=== PATIENT | female | born 1940 | race Caucasian/White ===

== ENCOUNTER 2022-01-28 19:14 | Inpatient (IN) | payer MEDICARE ==
[2022-01-28] MEDS ORDERED: Albuterol Sulfate 2.5 mg/3 ml Neb NEB PRN (20:28)
[2022-01-28 20:53] VITALS: BMI 32.4
[2022-01-28] MEDS: Bupropion 150 MG XL TAB PO SCH (21:56)
[2022-01-28] MEDS: metFORMIN 500 MG TAB PO SCH (21:56)
[2022-01-28] MEDS: Flecainide 50 MG TAB PO SCH (21:57)
[2022-01-28] MEDS: Apixaban 5 MG TAB PO SCH (21:57)
[2022-01-28] MEDS: Montelukast Sodium 10 mg Tablet PO SCH (21:57)
[2022-01-28] MEDS: Mometasone/Formoterol 200/5 60 PUFF INH SCH (21:59)
[2022-01-28] MEDS: ALPRAZolam 0.5 MG TAB PO PRN (23:53)
[2022-01-29] MEDS ORDERED: LUTEIN 6 MG PO SCH (09:00)
[2022-01-29] MEDS ORDERED: MAGNESIUM 250 MG PO SCH (09:00)
[2022-01-29] MEDS: Flecainide 50 MG TAB PO SCH ×2 (09:15→20:20)
[2022-01-29] MEDS: Ezetimibe 10 MG TAB PO SCH (09:16)
[2022-01-29] MEDS: Bupropion 150 MG XL TAB PO SCH ×2 (09:16→20:20)
[2022-01-29] MEDS: metFORMIN 500 MG TAB PO SCH ×2 (09:16→20:20)
[2022-01-29] MEDS: Apixaban 5 MG TAB PO SCH ×2 (09:16→20:20)
[2022-01-29] MEDS: Acetaminophen 325 MG TAB PO PRN ×2 (09:16→22:47)
[2022-01-29] MEDS: Cholecalciferol (Vitamin D3) 5,000 UNITS CAPSULE PO SCH (09:16)
[2022-01-29] MEDS: Mometasone/Formoterol 200/5 60 PUFF INH SCH ×2 (09:18→20:17)
[2022-01-29] MEDS ORDERED: Colchicine 0.6 MG TAB PO SCH (19:00)
[2022-01-29] MEDS: Montelukast Sodium 10 mg Tablet PO SCH (20:20)
[2022-01-29] MEDS: ALPRAZolam 0.5 MG TAB PO PRN (20:21)
[2022-01-30] MEDS: Bupropion 150 MG XL TAB PO SCH ×2 (09:20→20:40)
[2022-01-30] MEDS: metFORMIN 500 MG TAB PO SCH ×2 (09:20→20:40)
[2022-01-30] MEDS: Magnesium Oxide 400 MG TAB PO SCH (09:20)
[2022-01-30] MEDS: Colchicine 0.6 MG TAB PO SCH ×2 (09:21→20:40)
[2022-01-30] MEDS: Flecainide 50 MG TAB PO SCH ×2 (09:21→20:39)
[2022-01-30] MEDS: Cholecalciferol (Vitamin D3) 5,000 UNITS CAPSULE PO SCH (09:22)
[2022-01-30] MEDS: Ezetimibe 10 MG TAB PO SCH (09:22)
[2022-01-30] MEDS: Apixaban 5 MG TAB PO SCH ×2 (09:22→20:40)
[2022-01-30] MEDS: Mometasone/Formoterol 200/5 60 PUFF INH SCH ×2 (09:24→19:30)
[2022-01-30] MEDS: Acetaminophen 325 MG TAB PO PRN (10:48)
[2022-01-30] MEDS: ALPRAZolam 0.5 MG TAB PO PRN (14:00)
[2022-01-30] MEDS: Montelukast Sodium 10 mg Tablet PO SCH (20:40)
[2022-01-31] MEDS: Flecainide 50 MG TAB PO SCH ×2 (08:15→21:19)
[2022-01-31] MEDS: Cholecalciferol (Vitamin D3) 5,000 UNITS CAPSULE PO SCH (08:16)
[2022-01-31] MEDS: metFORMIN 500 MG TAB PO SCH ×2 (08:17→21:19)
[2022-01-31] MEDS: Magnesium Oxide 400 MG TAB PO SCH (08:17)
[2022-01-31] MEDS: Apixaban 5 MG TAB PO SCH ×2 (08:17→21:19)
[2022-01-31] MEDS: Bupropion 150 MG XL TAB PO SCH ×2 (08:18→21:19)
[2022-01-31] MEDS: Ezetimibe 10 MG TAB PO SCH (08:18)
[2022-01-31] MEDS: Mometasone/Formoterol 200/5 60 PUFF INH SCH (08:22)
[2022-01-31] MEDS: Acetaminophen 325 MG TAB PO PRN ×2 (10:30→21:22)
[2022-01-31] MEDS: ALPRAZolam 0.5 MG TAB PO PRN (18:58)
[2022-01-31] MEDS: Montelukast Sodium 10 mg Tablet PO SCH (21:20)
[2022-01-31] MEDS: SYMBICORT INH SCH (21:23)
[2022-02-01] MEDS: ALPRAZolam 0.5 MG TAB PO PRN ×2 (02:31→18:24)
[2022-02-01] MEDS: Acetaminophen 325 MG TAB PO PRN ×4 (05:32→22:04)
[2022-02-01] MEDS: metFORMIN 500 MG TAB PO SCH ×2 (10:17→22:04)
[2022-02-01] MEDS: Flecainide 50 MG TAB PO SCH ×2 (10:17→22:03)
[2022-02-01] MEDS: Ezetimibe 10 MG TAB PO SCH (10:17)
[2022-02-01] MEDS: Bupropion 150 MG XL TAB PO SCH ×2 (10:17→22:03)
[2022-02-01] MEDS: Magnesium Oxide 400 MG TAB PO SCH (10:18)
[2022-02-01] MEDS: Apixaban 5 MG TAB PO SCH ×2 (10:19→22:04)
[2022-02-01] MEDS: Cholecalciferol (Vitamin D3) 5,000 UNITS CAPSULE PO SCH (10:19)
[2022-02-01] MEDS: SYMBICORT INH SCH ×2 (10:42→22:29)
[2022-02-01 20:40] LABS: #Eosinphils 0.1 thou/uL (0.0-0.7); #Lymphocytes 1.3 thou/uL (1.20-3.40); #Monocytes 0.5 thou/uL (0.11-0.59); #Neutrophils 5.7 thou/uL (1.40-6.50); %Basophils 0.5 % (0.0-1.0); %Eosinophils 1.3 % (0.0-10.0); %Lymphocytes 16.6 % (21.0-51.0); %Monocytes 6.5 % (0.0-10.0); %Neutrophils 75.1 % (42.0-75.0); Hemoglobin 12.6 g/dL (12.0-16.0); Mean Corpuscular HGB CONC 32.7 g/dL (32.0-36.0); Mean Corpuscular Hemoglobin 27.8 pg (27.0-31.0); Mean Corpuscular Volume 84.8 fL (78.0-98.0); Mean Platelet Volume 7.2 fL (7.4-10.4); Platelet Count 217 thou/uL (130-400); RBC Distribution Width 13.6 % (11.5-14.5); Red Blood Cell (RBC) Count 4.54 mill/uL (4.20-5.40); White Blood Cell (WBC) Count 7.6 thou/uL (4.8-10.8)
[2022-02-01 20:53] LABS: ALT (SGPT) 13 U/L (8-55); AST (SGOT) 7 U/L (5-34); Albumin 3.2 g/dL (3.4-4.8); Alkaline Phosphatase 58 U/L (40-110); Anion Gap 15 mmol/L (10-20); BUN (Urea Nitrogen) 13 mg/dL (9.8-20.1); Bilirubin, Total 0.4 mg/dL (0.2-1.2); CRP (Inflammatory) 1.97 mg/dL (= or < 0.5); Calc. Creatinine Clearance 78 mL/min (70-130); Carbon Dioxide 25 mmol/L (23-31); Chloride 104 mmol/L (98-107); Estimated GFR 72; Globulin 2.2 g/dL (2.4-3.5); Glucose 124 mg/dL (83-110); Potassium 3.9 mmol/L (3.5-5.1); Protein, Total 5.4 g/dL (5.8-8.1); Sodium 140 mmol/L (136-145)
[2022-02-01] MEDS: Montelukast Sodium 10 mg Tablet PO SCH (22:04)
[2022-02-02] MEDS: Magnesium Oxide 400 MG TAB PO SCH (08:47)
[2022-02-02] MEDS: Flecainide 50 MG TAB PO SCH ×2 (08:47→22:51)
[2022-02-02] MEDS: Bupropion 150 MG XL TAB PO SCH ×2 (08:47→22:52)
[2022-02-02] MEDS: Cholecalciferol (Vitamin D3) 5,000 UNITS CAPSULE PO SCH (08:49)
[2022-02-02] MEDS: Ezetimibe 10 MG TAB PO SCH (08:49)
[2022-02-02] MEDS: Apixaban 5 MG TAB PO SCH ×2 (08:49→22:52)
[2022-02-02] MEDS: metFORMIN 500 MG TAB PO SCH ×2 (08:49→22:52)
[2022-02-02] MEDS: SYMBICORT INH SCH ×2 (08:52→22:57)
[2022-02-02] MEDS: Acetaminophen 325 MG TAB PO PRN ×2 (08:56→17:55)
[2022-02-02] MEDS: Montelukast Sodium 10 mg Tablet PO SCH (22:53)
[2022-02-03] MEDS: Acetaminophen 325 MG TAB PO PRN ×2 (02:54→18:40)
[2022-02-03] MEDS: ALPRAZolam 0.5 MG TAB PO PRN ×2 (04:59→23:34)
[2022-02-03] MEDS: Flecainide 50 MG TAB PO SCH ×2 (08:27→21:50)
[2022-02-03] MEDS: Magnesium Oxide 400 MG TAB PO SCH (08:28)
[2022-02-03] MEDS: metFORMIN 500 MG TAB PO SCH ×2 (08:28→21:50)
[2022-02-03] MEDS: Bupropion 150 MG XL TAB PO SCH ×2 (08:28→21:50)
[2022-02-03] MEDS: Apixaban 5 MG TAB PO SCH ×2 (08:28→21:50)
[2022-02-03] MEDS: Cholecalciferol (Vitamin D3) 5,000 UNITS CAPSULE PO SCH (08:28)
[2022-02-03] MEDS: Ezetimibe 10 MG TAB PO SCH (08:29)
[2022-02-03] MEDS: SYMBICORT INH SCH ×2 (08:30→21:50)
[2022-02-03 10:29] LABS: SARS-CoV-2 NAA Rapid Test Not Detected (NotDetected)
[2022-02-03] MEDS ORDERED: HumaLOG 300 UNITS/3 ML VIAL SC PRN (13:49)
[2022-02-03] MEDS ORDERED: Dextrose 50% Abboject 50 ML SYRINGE SLOW IVP PRN (13:49)
[2022-02-03] MEDS ORDERED: Dextrose 5% in Water 1,000 ML IV PRN (13:49)
[2022-02-03] MEDS: predniSONE 20 MG TAB PO SCH (21:50)
[2022-02-03] MEDS: Montelukast Sodium 10 mg Tablet PO SCH (21:50)
[2022-02-03] MEDS: Nystatin Powder 15 GM BOT TOP SCH (21:51)
[2022-02-04] MEDS: Acetaminophen 325 MG TAB PO PRN ×2 (01:15→08:54)
[2022-02-04] MEDS: ALPRAZolam 0.5 MG TAB PO PRN (08:50)
[2022-02-04] MEDS: metFORMIN 500 MG TAB PO SCH ×2 (08:51→20:26)
[2022-02-04] MEDS: Ezetimibe 10 MG TAB PO SCH (08:51)
[2022-02-04] MEDS: Flecainide 50 MG TAB PO SCH ×2 (08:51→20:27)
[2022-02-04] MEDS: Bupropion 150 MG XL TAB PO SCH ×2 (08:51→20:27)
[2022-02-04] MEDS: Magnesium Oxide 400 MG TAB PO SCH (08:52)
[2022-02-04] MEDS: predniSONE 20 MG TAB PO SCH ×2 (08:57→20:27)
[2022-02-04] MEDS: Apixaban 5 MG TAB PO SCH ×2 (08:58→20:27)
[2022-02-04] MEDS: Cholecalciferol (Vitamin D3) 5,000 UNITS CAPSULE PO SCH (08:58)
[2022-02-04] MEDS: Nystatin Powder 15 GM BOT TOP SCH ×2 (08:59→20:28)
[2022-02-04] MEDS: SYMBICORT INH SCH ×2 (09:04→20:28)
[2022-02-04] MEDS: HumaLOG 300 UNITS/3 ML VIAL SC PRN ×2 (10:19→16:41)
[2022-02-04] MEDS: Montelukast Sodium 10 mg Tablet PO SCH (20:27)
[2022-02-05] MEDS: Bupropion 150 MG XL TAB PO SCH ×2 (09:51→22:23)
[2022-02-05] MEDS: Flecainide 50 MG TAB PO SCH ×2 (09:51→22:21)
[2022-02-05] MEDS: Magnesium Oxide 400 MG TAB PO SCH (09:51)
[2022-02-05] MEDS: metFORMIN 500 MG TAB PO SCH ×2 (09:52→22:23)
[2022-02-05] MEDS: Apixaban 5 MG TAB PO SCH ×2 (09:53→22:21)
[2022-02-05] MEDS: predniSONE 20 MG TAB PO SCH ×2 (09:53→22:21)
[2022-02-05] MEDS: Cholecalciferol (Vitamin D3) 5,000 UNITS CAPSULE PO SCH (09:53)
[2022-02-05] MEDS: Nystatin Powder 15 GM BOT TOP SCH ×2 (09:56→22:23)
[2022-02-05] MEDS: Ezetimibe 10 MG TAB PO SCH (09:56)
[2022-02-05] MEDS: SYMBICORT INH SCH ×2 (10:00→22:23)
[2022-02-05] MEDS: Acetaminophen 325 MG TAB PO PRN (11:52)
[2022-02-05] MEDS: Montelukast Sodium 10 mg Tablet PO SCH (22:23)
[2022-02-06] MEDS: predniSONE 20 MG TAB PO SCH ×2 (07:58→20:29)
[2022-02-06] MEDS: Bupropion 150 MG XL TAB PO SCH ×2 (07:59→20:29)
[2022-02-06] MEDS: Ezetimibe 10 MG TAB PO SCH (07:59)
[2022-02-06] MEDS: Flecainide 50 MG TAB PO SCH ×2 (07:59→20:29)
[2022-02-06] MEDS: Magnesium Oxide 400 MG TAB PO SCH (07:59)
[2022-02-06] MEDS: metFORMIN 500 MG TAB PO SCH ×2 (08:00→20:30)
[2022-02-06] MEDS: Apixaban 5 MG TAB PO SCH ×2 (08:00→20:29)
[2022-02-06] MEDS: Cholecalciferol (Vitamin D3) 5,000 UNITS CAPSULE PO SCH (08:00)
[2022-02-06] MEDS: ALPRAZolam 0.5 MG TAB PO PRN ×2 (08:05→16:35)
[2022-02-06] MEDS: Acetaminophen 325 MG TAB PO PRN ×2 (13:54→20:27)
[2022-02-06] MEDS: Nystatin Powder 15 GM BOT TOP SCH ×2 (13:56→20:30)
[2022-02-06] MEDS: SYMBICORT INH SCH ×2 (13:57→20:30)
[2022-02-06] MEDS: Senokot S 8.6-50 MG TAB PO PRN (15:42)
[2022-02-06] MEDS ORDERED: Lorazepam 0.5 MG TAB PO PRN (17:49)
[2022-02-06] MEDS: Montelukast Sodium 10 mg Tablet PO SCH (20:29)
[2022-02-06 21:27] LABS: Bilirubin Small (Negative); Blood, Urine Negative (Negative); Clarity Clear (Clear); Glucose, Urine (Dipstick) Negative (Negative); Ketone, Urine Trace mg/dL (Negative); Leukocyte Trace (Negative); Nitrite Negative (Negative); Protein, Urine (Dipstick) Negative (Neg-Trace); Urobilinogen 0.2 mg/dL (Less than 2)
[2022-02-06 21:28] LABS: Specific Gravity, Urine 1.024 (1.002-1.036)
[2022-02-06 21:29] LABS: RBC/HPF 0-3 HPF (0-3)
[2022-02-06 21:33] LABS: Bacteria/HPF Rare-Few HPF (None Seen)
[2022-02-06 21:34] LABS: Urine Culture Reflex No No
[2022-02-06] MEDS ORDERED: Lorazepam 0.5 MG TAB PO SCH (22:00)
[2022-02-07] MEDS: Acetaminophen 325 MG TAB PO PRN ×2 (03:10→17:01)
[2022-02-07] MEDS: Senokot S 8.6-50 MG TAB PO PRN (04:49)
[2022-02-07] MEDS: predniSONE 20 MG TAB PO SCH (08:38)
[2022-02-07] MEDS: Bupropion 150 MG XL TAB PO SCH (08:38)
[2022-02-07] MEDS: Magnesium Oxide 400 MG TAB PO SCH (08:38)
[2022-02-07] MEDS: Flecainide 50 MG TAB PO SCH (08:40)
[2022-02-07] MEDS: Apixaban 5 MG TAB PO SCH (08:41)
[2022-02-07] MEDS: Ezetimibe 10 MG TAB PO SCH (08:41)
[2022-02-07] MEDS: metFORMIN 500 MG TAB PO SCH (08:41)
[2022-02-07] MEDS: Cholecalciferol (Vitamin D3) 5,000 UNITS CAPSULE PO SCH (08:42)
[2022-02-07] MEDS: Nystatin Powder 15 GM BOT TOP SCH (08:43)
[2022-02-07] MEDS: SYMBICORT INH SCH (08:43)
[2022-02-07] MEDS ORDERED: Polyethylene Glycol 3350 17 GM Packet PO SCH (09:00)
[2022-02-07] MEDS ORDERED: Sodium Chloride 0.9% 500 ML IVPB SCH (11:15)
[2022-02-07] MEDS ORDERED: Bisacodyl 10 MG SUPP PR PRN (15:28)
[2022-02-07] MEDS: HumaLOG 300 UNITS/3 ML VIAL SC PRN (16:29)
[2022-02-07] MEDS ORDERED: Ondansetron ODT 4 MG TAB PO PRN (17:25)
[2022-02-07 17:59] VITALS: BP 98/63; TEMP 98.8
[2022-02-07 18:28] LABS: Hemoglobin 11.9 g/dL (12.0-16.0); Mean Corpuscular HGB CONC 32.3 g/dL (32.0-36.0); Mean Corpuscular Hemoglobin 27.7 pg (27.0-31.0); Mean Corpuscular Volume 85.7 fL (78.0-98.0); Mean Platelet Volume 8.6 fL (7.4-10.4); Platelet Count 139 thou/uL (130-400); RBC Distribution Width 14.2 % (11.5-14.5); White Blood Cell (WBC) Count 40.9 thou/uL (4.8-10.8)
[2022-02-07] MEDS ORDERED: Magnesium Citrate 300 ML BOT PO SCH (18:30)
[2022-02-07 18:41] LABS: ALT (SGPT) 49 U/L (8-55); AST (SGOT) 27 U/L (5-34); Albumin 3.2 g/dL (3.4-4.8); Alkaline Phosphatase 57 U/L (40-110); Anion Gap 16 mmol/L (10-20); BUN (Urea Nitrogen) 44 mg/dL (9.8-20.1); Calc. Creatinine Clearance 39 mL/min (70-130); Calcium 9.4 mg/dL (7.8-10.44); Carbon Dioxide 25 mmol/L (23-31); Chloride 103 mmol/L (98-107); Estimated GFR 32; Globulin 2.3 g/dL (2.4-3.5); Glucose 160 mg/dL (83-110); Potassium 5.1 mmol/L (3.5-5.1); Protein, Total 5.5 g/dL (5.8-8.1); Sodium 139 mmol/L (136-145)
== END 2022-02-07 22:10 | disposition short-term general hospital (02) | DRG 948 ==
LOC: BURMED 19:14
PROVIDERS: ADMIT Family Medicine; ATTEND Family Medicine
DX: R53.1 Weakness (principal); I48.91 Unspecified atrial fibrillation; I10 Essential (primary) hypertension; E78.5 Hyperlipidemia, unspecified; J45.909 Unspecified asthma, uncomplicated; E11.40 Type 2 diabetes mellitus with diabetic neuropathy, unspecified; Z20.822 Contact with and (suspected) exposure to COVID-19; M10.9 Gout, unspecified; Z79.01 Long term (current) use of anticoagulants; Z91.81 History of falling; Z85.3 Personal history of malignant neoplasm of breast
CPT/HCPCS: 36416; 71045; 72100; 72220; 80053; 81001; 83880; 84550; 85025; 85027; 86140; 36415-59; J1815; J7030; J7512; J7611; U0002

== ENCOUNTER 2022-02-07 19:28 | Emergency (ER) | payer MEDICARE ==
[2022-02-07] MEDS ORDERED: Clindamycin/D5W 600 mg/50 ml Premix Bag ONE (20:52)
[2022-02-07] MEDS ORDERED: Ketorolac Tromethamine 30 MG/ML VIAL ONE (21:03)
[2022-02-07 21:06] LABS: Bilirubin Small (Negative); Blood, Urine Large (Negative); Clarity Clear (Clear); Glucose, Urine (Dipstick) Negative (Negative); Ketone, Urine Trace mg/dL (Negative); Leukocyte Moderate (Negative); Nitrite Negative (Negative); Protein, Urine (Dipstick) 100 mg/dL (Neg-Trace); Specific Gravity, Urine Greater/Equal 1.030 (1.005-1.030)
[2022-02-07 21:09] LABS: Bacteria/HPF 1+ HPF (None Seen); Squamous Epithelial 0-3 HPF (0-3); WBC/HPF Greater Than 50 HPF (0-3)
[2022-02-08 02:30] LABS: Actual Bicarbonate (HCO3a) 24.8 mEq/L (22-28); Analyzer IN Cardio ER; Base Excess (BEa) -1.2 mEq/L (-2.0 to +3.0); CO2 Tension 46.5 mmHg (35.0-45.0); Calcium, Ionized (arterial) 1.26 mmol/L (1.12-1.30); Carboxyhemoglobin (COHb) 0.3 gm% (0.0-3.0); Hemoglobin (Hb) 12.8 g/dL (12.0-16.0); O2 Tension (PaO2), arterial 158.7 mmHg (> 60.0); Potassium - ABG Lab 4.81 mmol/L (3.70-5.30); pH, Arterial 7.34 (7.35-7.45)
[2022-02-08 02:32] LABS: Puncture Site LRA
[2022-02-08 02:33] LABS: ALV-art Gradient 139.675 mmHg (0-20)
== END 2022-02-07 21:58 | disposition short-term general hospital (02) ==
LOC: BURERS 19:28
DX: A41.9 Sepsis, unspecified organism (principal); N10 Acute pyelonephritis; I48.91 Unspecified atrial fibrillation; J90 Pleural effusion, not elsewhere classified; I10 Essential (primary) hypertension; Z79.01 Long term (current) use of anticoagulants; Z79.899 Other long term (current) drug therapy
CPT/HCPCS: 36600; 74176; 81003; 81015; 82805; 83605; 83880; 84484; 87040; 87077; 87086; 87149; 87186; 93005; 94760; 96374; 96375; 36415-59; J1885; J3490

== ENCOUNTER 2022-02-21 20:14 | Inpatient (IN) | payer MEDICARE ==
[2022-02-21] MEDS ORDERED: Albuterol Sulfate 2.5 mg/3 ml Neb NEB PRN (21:12)
[2022-02-21] MEDS: ALPRAZolam 0.5 MG TAB PO PRN (22:30)
[2022-02-21] MEDS: Acetaminophen 325 MG TAB PO PRN (22:30)
[2022-02-22] MEDS: Meropenem 1 GM in Sodium Chloride 0.9% 100 ML IVPB SCH ×3 (00:58→17:31)
[2022-02-22] MEDS ORDERED: Meropenem 1 GM VIAL IVPB SCH (01:00)
[2022-02-22] MEDS: Ezetimibe 10 MG TAB PO SCH (08:38)
[2022-02-22] MEDS: Amiodarone 200 MG TAB PO SCH ×2 (08:38→20:27)
[2022-02-22] MEDS: Cholecalciferol (Vitamin D3) 5,000 UNITS CAPSULE PO SCH (08:38)
[2022-02-22] MEDS: Montelukast Sodium 10 mg Tablet PO SCH (08:38)
[2022-02-22] MEDS: Apixaban 5 MG TAB PO SCH ×2 (08:39→20:27)
[2022-02-22] MEDS: metFORMIN 500 MG TAB PO SCH ×2 (08:39→20:27)
[2022-02-22] MEDS: Mometasone/Formoterol 200/5 60 PUFF INH SCH ×2 (08:39→20:30)
[2022-02-22] MEDS: Bupropion 150 MG XL TAB PO SCH ×2 (08:45→20:27)
[2022-02-22] MEDS: Acetaminophen 325 MG TAB PO PRN (11:12)
[2022-02-22] MEDS: ALPRAZolam 0.5 MG TAB PO PRN (20:26)
[2022-02-23] MEDS: Meropenem 1 GM in Sodium Chloride 0.9% 100 ML IVPB SCH ×3 (01:17→17:27)
[2022-02-23] MEDS: Montelukast Sodium 10 mg Tablet PO SCH (09:32)
[2022-02-23] MEDS: Ezetimibe 10 MG TAB PO SCH (09:32)
[2022-02-23] MEDS: metFORMIN 500 MG TAB PO SCH ×2 (09:32→20:26)
[2022-02-23] MEDS: Amiodarone 200 MG TAB PO SCH ×2 (09:32→20:26)
[2022-02-23] MEDS: Bupropion 150 MG XL TAB PO SCH ×2 (09:32→20:26)
[2022-02-23] MEDS: Cholecalciferol (Vitamin D3) 5,000 UNITS CAPSULE PO SCH (09:33)
[2022-02-23] MEDS: Apixaban 5 MG TAB PO SCH ×2 (09:33→20:26)
[2022-02-23] MEDS: Mometasone/Formoterol 200/5 60 PUFF INH SCH ×2 (09:34→20:26)
[2022-02-23] MEDS: Acetaminophen 325 MG TAB PO PRN (18:13)
[2022-02-23] MEDS: ALPRAZolam 0.5 MG TAB PO PRN (20:31)
[2022-02-24] MEDS: Meropenem 1 GM in Sodium Chloride 0.9% 100 ML IVPB SCH ×3 (00:54→17:26)
[2022-02-24] MEDS: Acetaminophen 325 MG TAB PO PRN ×2 (01:00→20:32)
[2022-02-24] MEDS: Mometasone/Formoterol 200/5 60 PUFF INH SCH ×2 (08:59→20:41)
[2022-02-24] MEDS: metFORMIN 500 MG TAB PO SCH ×2 (09:02→20:34)
[2022-02-24] MEDS: Ezetimibe 10 MG TAB PO SCH (09:02)
[2022-02-24] MEDS: Bupropion 150 MG XL TAB PO SCH ×2 (09:02→20:33)
[2022-02-24] MEDS: Apixaban 5 MG TAB PO SCH ×2 (09:02→20:34)
[2022-02-24] MEDS: Montelukast Sodium 10 mg Tablet PO SCH (09:02)
[2022-02-24] MEDS: Amiodarone 200 MG TAB PO SCH ×2 (09:02→20:34)
[2022-02-24] MEDS: Cholecalciferol (Vitamin D3) 5,000 UNITS CAPSULE PO SCH (09:03)
[2022-02-24] MEDS: ALPRAZolam 0.5 MG TAB PO PRN (20:36)
[2022-02-25] MEDS: Meropenem 1 GM in Sodium Chloride 0.9% 100 ML IVPB SCH ×3 (00:27→17:04)
[2022-02-25] MEDS: Mometasone/Formoterol 200/5 60 PUFF INH SCH ×2 (08:53→20:57)
[2022-02-25] MEDS: Ezetimibe 10 MG TAB PO SCH (08:57)
[2022-02-25] MEDS: Apixaban 5 MG TAB PO SCH ×2 (08:57→20:36)
[2022-02-25] MEDS: metFORMIN 500 MG TAB PO SCH ×2 (08:58→20:36)
[2022-02-25] MEDS: Bupropion 150 MG XL TAB PO SCH ×2 (08:58→20:36)
[2022-02-25] MEDS: Montelukast Sodium 10 mg Tablet PO SCH (08:58)
[2022-02-25] MEDS: Amiodarone 200 MG TAB PO SCH ×2 (08:58→20:36)
[2022-02-25] MEDS: Cholecalciferol (Vitamin D3) 5,000 UNITS CAPSULE PO SCH (08:58)
[2022-02-25] MEDS ORDERED: MAGNESIUM CITRATE PO SCH (10:00)
[2022-02-25] MEDS: ALPRAZolam 0.5 MG TAB PO PRN (20:36)
[2022-02-25] MEDS: Acetaminophen 325 MG TAB PO PRN (20:44)
[2022-02-26] MEDS: Meropenem 1 GM in Sodium Chloride 0.9% 100 ML IVPB SCH ×3 (00:53→17:45)
[2022-02-26] MEDS ORDERED: Ondansetron ODT 4 MG TAB PO PRN (07:12)
[2022-02-26] MEDS: metFORMIN 500 MG TAB PO SCH ×2 (09:16→20:13)
[2022-02-26] MEDS: Montelukast Sodium 10 mg Tablet PO SCH (09:16)
[2022-02-26] MEDS: Cholecalciferol (Vitamin D3) 5,000 UNITS CAPSULE PO SCH (09:16)
[2022-02-26] MEDS: Bupropion 150 MG XL TAB PO SCH ×2 (09:17→20:14)
[2022-02-26] MEDS: Amiodarone 200 MG TAB PO SCH ×2 (09:17→20:14)
[2022-02-26] MEDS: Apixaban 5 MG TAB PO SCH ×2 (09:17→20:13)
[2022-02-26] MEDS: Ezetimibe 10 MG TAB PO SCH (09:17)
[2022-02-26] MEDS: MAGNESIUM CITRATE PO SCH (09:37)
[2022-02-26] MEDS: Mometasone/Formoterol 200/5 60 PUFF INH SCH ×2 (09:38→20:15)
[2022-02-26] MEDS: ALPRAZolam 0.5 MG TAB PO PRN (20:14)
[2022-02-26] MEDS: Acetaminophen 325 MG TAB PO PRN (20:30)
[2022-02-27] MEDS: Meropenem 1 GM in Sodium Chloride 0.9% 100 ML IVPB SCH ×3 (01:04→16:31)
[2022-02-27] MEDS: Cholecalciferol (Vitamin D3) 5,000 UNITS CAPSULE PO SCH (09:00)
[2022-02-27] MEDS: Ezetimibe 10 MG TAB PO SCH (09:00)
[2022-02-27] MEDS: Montelukast Sodium 10 mg Tablet PO SCH (09:00)
[2022-02-27] MEDS: metFORMIN 500 MG TAB PO SCH ×2 (09:00→20:14)
[2022-02-27] MEDS: Bupropion 150 MG XL TAB PO SCH ×2 (09:00→20:14)
[2022-02-27] MEDS: Apixaban 5 MG TAB PO SCH ×2 (09:01→20:14)
[2022-02-27] MEDS: Amiodarone 200 MG TAB PO SCH ×2 (09:01→20:14)
[2022-02-27] MEDS: MAGNESIUM CITRATE PO SCH (09:02)
[2022-02-27] MEDS: Mometasone/Formoterol 200/5 60 PUFF INH SCH ×2 (09:02→20:16)
[2022-02-27] MEDS: ALPRAZolam 0.5 MG TAB PO PRN (20:14)
[2022-02-27] MEDS: Acetaminophen 325 MG TAB PO PRN (20:14)
[2022-02-28] MEDS: Meropenem 1 GM in Sodium Chloride 0.9% 100 ML IVPB SCH ×3 (01:20→17:52)
[2022-02-28 05:20] LABS: #Basophils 0.1 thou/uL (0.0-0.2); #Eosinphils 0.3 thou/uL (0.0-0.7); #Lymphocytes 1.1 thou/uL (1.20-3.40); #Monocytes 0.5 thou/uL (0.11-0.59); #Neutrophils 3.5 thou/uL (1.40-6.50); %Eosinophils 5.6 % (0.0-10.0); %Lymphocytes 20.2 % (21.0-51.0); %Monocytes 9.3 % (0.0-10.0); Hemoglobin 11.2 g/dL (12.0-16.0); Mean Corpuscular HGB CONC 31.4 g/dL (32.0-36.0); Mean Corpuscular Hemoglobin 26.9 pg (27.0-31.0); Mean Corpuscular Volume 85.9 fL (78.0-98.0); Mean Platelet Volume 6.7 fL (7.4-10.4); Platelet Count 263 thou/uL (130-400); RBC Distribution Width 14.8 % (11.5-14.5); Red Blood Cell (RBC) Count 4.15 mill/uL (4.20-5.40); White Blood Cell (WBC) Count 5.5 thou/uL (4.8-10.8)
[2022-02-28] MEDS: Mometasone/Formoterol 200/5 60 PUFF INH SCH ×2 (08:51→21:15)
[2022-02-28] MEDS: Ezetimibe 10 MG TAB PO SCH (08:55)
[2022-02-28] MEDS: metFORMIN 500 MG TAB PO SCH ×2 (08:55→21:15)
[2022-02-28] MEDS: Amiodarone 200 MG TAB PO SCH ×2 (08:55→21:15)
[2022-02-28] MEDS: Montelukast Sodium 10 mg Tablet PO SCH (08:55)
[2022-02-28] MEDS: Bupropion 150 MG XL TAB PO SCH ×2 (08:55→21:15)
[2022-02-28] MEDS: Apixaban 5 MG TAB PO SCH ×2 (08:56→21:15)
[2022-02-28] MEDS: Cholecalciferol (Vitamin D3) 5,000 UNITS CAPSULE PO SCH (08:56)
[2022-02-28] MEDS: MAGNESIUM CITRATE PO SCH (08:57)
[2022-02-28] MEDS: Acetaminophen 325 MG TAB PO PRN ×2 (12:29→21:25)
[2022-02-28] MEDS: ALPRAZolam 0.5 MG TAB PO PRN (21:25)
[2022-03-01] MEDS: Meropenem 1 GM in Sodium Chloride 0.9% 100 ML IVPB SCH ×3 (00:42→17:48)
[2022-03-01] MEDS: ALPRAZolam 0.5 MG TAB PO PRN ×2 (06:22→21:19)
[2022-03-01] MEDS: Amiodarone 200 MG TAB PO SCH ×2 (08:37→20:31)
[2022-03-01] MEDS: Ezetimibe 10 MG TAB PO SCH (08:37)
[2022-03-01] MEDS: Bupropion 150 MG XL TAB PO SCH ×2 (08:37→20:31)
[2022-03-01] MEDS: Montelukast Sodium 10 mg Tablet PO SCH (08:37)
[2022-03-01] MEDS: metFORMIN 500 MG TAB PO SCH ×2 (08:38→20:31)
[2022-03-01] MEDS: Cholecalciferol (Vitamin D3) 5,000 UNITS CAPSULE PO SCH (08:38)
[2022-03-01] MEDS: Apixaban 5 MG TAB PO SCH ×2 (08:38→20:31)
[2022-03-01] MEDS: Mometasone/Formoterol 200/5 60 PUFF INH SCH ×2 (08:42→20:32)
[2022-03-01] MEDS: MAGNESIUM CITRATE PO SCH (08:43)
[2022-03-01] MEDS: LETROZOLE 2.5 MG PO SCH (12:17)
[2022-03-01] MEDS: Acetaminophen 325 MG TAB PO PRN (21:19)
[2022-03-02] MEDS: Meropenem 1 GM in Sodium Chloride 0.9% 100 ML IVPB SCH ×3 (00:58→16:43)
[2022-03-02] MEDS: Montelukast Sodium 10 mg Tablet PO SCH (08:59)
[2022-03-02] MEDS: Ezetimibe 10 MG TAB PO SCH (08:59)
[2022-03-02] MEDS: Amiodarone 200 MG TAB PO SCH ×2 (09:00→21:43)
[2022-03-02] MEDS: Apixaban 5 MG TAB PO SCH ×2 (09:00→21:43)
[2022-03-02] MEDS: Bupropion 150 MG XL TAB PO SCH ×2 (09:00→21:43)
[2022-03-02] MEDS: Cholecalciferol (Vitamin D3) 5,000 UNITS CAPSULE PO SCH (09:01)
[2022-03-02] MEDS: metFORMIN 500 MG TAB PO SCH ×2 (09:01→21:43)
[2022-03-02] MEDS: Mometasone/Formoterol 200/5 60 PUFF INH SCH ×2 (09:02→21:43)
[2022-03-02] MEDS: LETROZOLE 2.5 MG PO SCH (09:06)
[2022-03-02] MEDS: MAGNESIUM CITRATE PO SCH (09:08)
[2022-03-02] MEDS: Acetaminophen 325 MG TAB PO PRN (21:44)
[2022-03-02] MEDS: ALPRAZolam 0.5 MG TAB PO PRN (21:46)
[2022-03-03] MEDS: Meropenem 1 GM in Sodium Chloride 0.9% 100 ML IVPB SCH ×3 (00:36→21:11)
[2022-03-03] MEDS: ALPRAZolam 0.5 MG TAB PO PRN (05:03)
[2022-03-03] MEDS: Amiodarone 200 MG TAB PO SCH ×2 (08:49→21:13)
[2022-03-03] MEDS: Apixaban 5 MG TAB PO SCH ×2 (08:49→21:13)
[2022-03-03] MEDS: Montelukast Sodium 10 mg Tablet PO SCH (08:49)
[2022-03-03] MEDS: Ezetimibe 10 MG TAB PO SCH (08:49)
[2022-03-03] MEDS: Bupropion 150 MG XL TAB PO SCH ×2 (08:49→21:13)
[2022-03-03] MEDS: metFORMIN 500 MG TAB PO SCH ×2 (08:50→21:13)
[2022-03-03] MEDS: MAGNESIUM CITRATE PO SCH (08:54)
[2022-03-03] MEDS: LETROZOLE 2.5 MG PO SCH (08:55)
[2022-03-03] MEDS: Mometasone/Formoterol 200/5 60 PUFF INH SCH ×2 (08:56→21:14)
[2022-03-03] MEDS: Cholecalciferol (Vitamin D3) 5,000 UNITS CAPSULE PO SCH (08:57)
[2022-03-04] MEDS: ALPRAZolam 0.5 MG TAB PO PRN ×3 (01:04→22:00)
[2022-03-04] MEDS: Acetaminophen 325 MG TAB PO PRN ×2 (06:06→21:58)
[2022-03-04] MEDS ORDERED: Polyethylene Glycol 3350 17 GM Packet PO PRN (07:14)
[2022-03-04] MEDS: MAGNESIUM CITRATE PO SCH (08:42)
[2022-03-04] MEDS: Mometasone/Formoterol 200/5 60 PUFF INH SCH ×2 (08:43→21:57)
[2022-03-04] MEDS: LETROZOLE 2.5 MG PO SCH (08:44)
[2022-03-04] MEDS: Amiodarone 200 MG TAB PO SCH ×2 (08:45→21:40)
[2022-03-04] MEDS: Meropenem 1 GM in Sodium Chloride 0.9% 100 ML IVPB SCH ×2 (08:45→21:39)
[2022-03-04] MEDS: Ezetimibe 10 MG TAB PO SCH (08:46)
[2022-03-04] MEDS: Cholecalciferol (Vitamin D3) 5,000 UNITS CAPSULE PO SCH (08:46)
[2022-03-04] MEDS: Apixaban 5 MG TAB PO SCH ×2 (08:46→21:40)
[2022-03-04] MEDS: Montelukast Sodium 10 mg Tablet PO SCH (08:47)
[2022-03-04] MEDS: metFORMIN 500 MG TAB PO SCH ×2 (08:47→21:39)
[2022-03-04] MEDS: Bupropion 150 MG XL TAB PO SCH ×2 (08:47→21:39)
[2022-03-05] MEDS: ALPRAZolam 0.5 MG TAB PO PRN (04:29)
[2022-03-05 08:33] LABS: #Basophils 0.1 thou/uL (0.0-0.2); #Eosinphils 0.1 thou/uL (0.0-0.7); #Lymphocytes 1.1 thou/uL (1.20-3.40); #Monocytes 0.5 thou/uL (0.11-0.59); #Neutrophils 6.2 thou/uL (1.40-6.50); %Basophils 0.7 % (0.0-1.0); %Eosinophils 1.5 % (0.0-10.0); %Lymphocytes 13.9 % (21.0-51.0); %Monocytes 6.1 % (0.0-10.0); %Neutrophils 77.8 % (42.0-75.0); Hemoglobin 11.4 g/dL (12.0-16.0); Mean Corpuscular HGB CONC 32.8 g/dL (32.0-36.0); Mean Corpuscular Hemoglobin 27.3 pg (27.0-31.0); Mean Corpuscular Volume 83.4 fL (78.0-98.0); Mean Platelet Volume 6.9 fL (7.4-10.4); Platelet Count 256 thou/uL (130-400); Red Blood Cell (RBC) Count 4.16 mill/uL (4.20-5.40); White Blood Cell (WBC) Count 7.9 thou/uL (4.8-10.8)
[2022-03-05 08:49] LABS: ALT (SGPT) 9 U/L (8-55); AST (SGOT) 9 U/L (5-34); Albumin 3.1 g/dL (3.4-4.8); Alkaline Phosphatase 57 U/L (40-110); Anion Gap 15 mmol/L (10-20); BUN (Urea Nitrogen) 19 mg/dL (9.8-20.1); Bilirubin, Total 0.5 mg/dL (0.2-1.2); Calc. Creatinine Clearance 83 mL/min (70-130); Calcium 9.1 mg/dL (7.8-10.44); Carbon Dioxide 25 mmol/L (23-31); Chloride 105 mmol/L (98-107); Estimated GFR 76; Globulin 2.7 g/dL (2.4-3.5); Glucose 87 mg/dL (83-110); Potassium 4.5 mmol/L (3.5-5.1); Protein, Total 5.8 g/dL (5.8-8.1); Sodium 140 mmol/L (136-145)
[2022-03-05] MEDS: Meropenem 1 GM in Sodium Chloride 0.9% 100 ML IVPB SCH ×2 (09:38→22:10)
[2022-03-05] MEDS: MAGNESIUM CITRATE PO SCH (09:39)
[2022-03-05] MEDS: LETROZOLE 2.5 MG PO SCH (09:39)
[2022-03-05] MEDS: Apixaban 5 MG TAB PO SCH ×2 (09:40→22:15)
[2022-03-05] MEDS: metFORMIN 500 MG TAB PO SCH ×3 (09:40→22:15)
[2022-03-05] MEDS: Ezetimibe 10 MG TAB PO SCH (09:40)
[2022-03-05] MEDS: Montelukast Sodium 10 mg Tablet PO SCH (09:40)
[2022-03-05] MEDS: Bupropion 150 MG XL TAB PO SCH ×2 (09:40→22:14)
[2022-03-05] MEDS: Cholecalciferol (Vitamin D3) 5,000 UNITS CAPSULE PO SCH (09:41)
[2022-03-05] MEDS: Amiodarone 200 MG TAB PO SCH ×2 (09:41→22:15)
[2022-03-05] MEDS: Mometasone/Formoterol 200/5 60 PUFF INH SCH ×2 (09:42→22:15)
[2022-03-05] MEDS ORDERED: Furosemide 20 MG TAB PO SCH (10:00)
[2022-03-05] MEDS ORDERED: Meropenem 1 GM in Sodium Chloride 0.9% 100 ML IVPB SCH (17:00)
[2022-03-05] MEDS: hydrOXYzine 25 MG TAB PO SCH (22:15)
[2022-03-06] MEDS: Bupropion 150 MG XL TAB PO SCH ×2 (09:24→20:29)
[2022-03-06] MEDS: Apixaban 5 MG TAB PO SCH ×2 (09:25→20:29)
[2022-03-06] MEDS: Ezetimibe 10 MG TAB PO SCH (09:25)
[2022-03-06] MEDS: Montelukast Sodium 10 mg Tablet PO SCH (09:25)
[2022-03-06] MEDS: metFORMIN 500 MG TAB PO SCH ×2 (09:25→20:29)
[2022-03-06] MEDS: Cholecalciferol (Vitamin D3) 5,000 UNITS CAPSULE PO SCH (09:26)
[2022-03-06] MEDS: Amiodarone 200 MG TAB PO SCH ×2 (09:26→20:29)
[2022-03-06] MEDS: Furosemide 20 MG TAB PO SCH (09:26)
[2022-03-06] MEDS: Mometasone/Formoterol 200/5 60 PUFF INH SCH ×2 (09:26→20:27)
[2022-03-06] MEDS: LETROZOLE 2.5 MG PO SCH (09:28)
[2022-03-06] MEDS: MAGNESIUM CITRATE PO SCH (09:30)
[2022-03-06] MEDS: Meropenem 1 GM in Sodium Chloride 0.9% 100 ML IVPB SCH ×2 (09:40→20:30)
[2022-03-06 14:21] VITALS: BMI 32.0
[2022-03-06] MEDS: hydrOXYzine 25 MG TAB PO SCH (20:29)
[2022-03-07 04:40] LABS: #Basophils 0.1 thou/uL (0.0-0.2); #Eosinphils 0.1 thou/uL (0.0-0.7); #Lymphocytes 1.3 thou/uL (1.20-3.40); #Monocytes 0.5 thou/uL (0.11-0.59); #Neutrophils 3.8 thou/uL (1.40-6.50); %Basophils 0.9 % (0.0-1.0); %Eosinophils 2.5 % (0.0-10.0); %Lymphocytes 22.8 % (21.0-51.0); %Monocytes 8.5 % (0.0-10.0); %Neutrophils 65.4 % (42.0-75.0); Mean Corpuscular HGB CONC 32.1 g/dL (32.0-36.0); Mean Corpuscular Volume 84.1 fL (78.0-98.0); Mean Platelet Volume 6.9 fL (7.4-10.4); Platelet Count 248 thou/uL (130-400); RBC Distribution Width 16.5 % (11.5-14.5); Red Blood Cell (RBC) Count 4.09 mill/uL (4.20-5.40); White Blood Cell (WBC) Count 5.8 thou/uL (4.8-10.8)
[2022-03-07 04:52] LABS: Anion Gap 16 mmol/L (10-20); BUN (Urea Nitrogen) 17 mg/dL (9.8-20.1); Calc. Creatinine Clearance 71 mL/min (70-130); Calcium 8.9 mg/dL (7.8-10.44); Carbon Dioxide 28 mmol/L (23-31); Chloride 105 mmol/L (98-107); Estimated GFR 66; Glucose 91 mg/dL (83-110); Potassium 4.5 mmol/L (3.5-5.1); Sodium 144 mmol/L (136-145)
[2022-03-07 04:54] LABS: INR-International Normal Ratio 1.8; Prothrombin Time 21.6 sec (12.0-14.7)
[2022-03-07 04:55] LABS: PTT 48.3 sec (22.9-36.1)
[2022-03-07] MEDS: Bupropion 150 MG XL TAB PO SCH ×2 (09:20→20:30)
[2022-03-07] MEDS: Apixaban 5 MG TAB PO SCH ×2 (09:20→20:29)
[2022-03-07] MEDS: Nystatin 500,000 UNITS/5 ML UDCUP SSW SCH ×4 (09:20→20:38)
[2022-03-07] MEDS: Furosemide 20 MG TAB PO SCH (09:20)
[2022-03-07] MEDS: metFORMIN 500 MG TAB PO SCH ×2 (09:20→20:28)
[2022-03-07] MEDS: Ezetimibe 10 MG TAB PO SCH (09:20)
[2022-03-07] MEDS: Montelukast Sodium 10 mg Tablet PO SCH (09:21)
[2022-03-07] MEDS: Amiodarone 200 MG TAB PO SCH ×2 (09:21→20:29)
[2022-03-07] MEDS: Cholecalciferol (Vitamin D3) 5,000 UNITS CAPSULE PO SCH (09:21)
[2022-03-07] MEDS: Mometasone/Formoterol 200/5 60 PUFF INH SCH ×2 (09:21→20:33)
[2022-03-07] MEDS: LETROZOLE 2.5 MG PO SCH (09:23)
[2022-03-07] MEDS: MAGNESIUM CITRATE PO SCH (09:24)
[2022-03-07] MEDS: hydrOXYzine 25 MG TAB PO SCH (20:28)
[2022-03-07] MEDS: ALPRAZolam 0.5 MG TAB PO PRN (23:05)
[2022-03-08] MEDS: Mometasone/Formoterol 200/5 60 PUFF INH SCH ×2 (09:30→20:39)
[2022-03-08] MEDS: MAGNESIUM CITRATE PO SCH (09:32)
[2022-03-08] MEDS: LETROZOLE 2.5 MG PO SCH (09:33)
[2022-03-08] MEDS: Bupropion 150 MG XL TAB PO SCH ×2 (09:33→20:30)
[2022-03-08] MEDS: Nystatin 500,000 UNITS/5 ML UDCUP SSW SCH ×4 (09:33→20:30)
[2022-03-08] MEDS: Furosemide 20 MG TAB PO SCH (09:34)
[2022-03-08] MEDS: Amiodarone 200 MG TAB PO SCH ×2 (09:34→20:31)
[2022-03-08] MEDS: metFORMIN 500 MG TAB PO SCH ×2 (09:34→20:31)
[2022-03-08] MEDS: Montelukast Sodium 10 mg Tablet PO SCH (09:34)
[2022-03-08] MEDS: Ezetimibe 10 MG TAB PO SCH (09:34)
[2022-03-08] MEDS: Cholecalciferol (Vitamin D3) 5,000 UNITS CAPSULE PO SCH (09:34)
[2022-03-08] MEDS: Apixaban 5 MG TAB PO SCH ×2 (09:34→20:31)
[2022-03-08] MEDS: ALPRAZolam 0.5 MG TAB PO PRN (20:30)
[2022-03-08] MEDS: hydrOXYzine 25 MG TAB PO SCH (20:31)
[2022-03-09] MEDS: MAGNESIUM CITRATE PO SCH (10:11)
[2022-03-09] MEDS: Cholecalciferol (Vitamin D3) 5,000 UNITS CAPSULE PO SCH (10:11)
[2022-03-09] MEDS: metFORMIN 500 MG TAB PO SCH ×2 (10:11→20:53)
[2022-03-09] MEDS: Montelukast Sodium 10 mg Tablet PO SCH (10:11)
[2022-03-09] MEDS: LETROZOLE 2.5 MG PO SCH (10:12)
[2022-03-09] MEDS: Bupropion 150 MG XL TAB PO SCH ×2 (10:12→20:55)
[2022-03-09] MEDS: Mometasone/Formoterol 200/5 60 PUFF INH SCH ×2 (10:13→20:55)
[2022-03-09] MEDS: Furosemide 20 MG TAB PO SCH (10:13)
[2022-03-09] MEDS: Apixaban 5 MG TAB PO SCH ×2 (10:13→20:53)
[2022-03-09] MEDS: Amiodarone 200 MG TAB PO SCH ×2 (10:13→20:53)
[2022-03-09] MEDS: Ezetimibe 10 MG TAB PO SCH (10:13)
[2022-03-09] MEDS: Nystatin 500,000 UNITS/5 ML UDCUP SSW SCH ×4 (10:14→20:53)
[2022-03-09] MEDS: Acetaminophen 325 MG TAB PO PRN (17:24)
[2022-03-09] MEDS: hydrOXYzine 25 MG TAB PO SCH (20:53)
[2022-03-10] MEDS: Acetaminophen 325 MG TAB PO PRN ×2 (04:28→10:16)
[2022-03-10] MEDS: ALPRAZolam 0.5 MG TAB PO PRN (05:53)
[2022-03-10 06:12] VITALS: TEMP 97.8
[2022-03-10] MEDS: Nystatin 500,000 UNITS/5 ML UDCUP SSW SCH ×2 (10:15→12:54)
[2022-03-10] MEDS: Montelukast Sodium 10 mg Tablet PO SCH (10:16)
[2022-03-10] MEDS: metFORMIN 500 MG TAB PO SCH (10:16)
[2022-03-10] MEDS: MAGNESIUM CITRATE PO SCH (10:17)
[2022-03-10] MEDS: LETROZOLE 2.5 MG PO SCH (10:18)
[2022-03-10] MEDS: Bupropion 150 MG XL TAB PO SCH (10:18)
[2022-03-10] MEDS: Cholecalciferol (Vitamin D3) 5,000 UNITS CAPSULE PO SCH (10:19)
[2022-03-10] MEDS: Amiodarone 200 MG TAB PO SCH (10:19)
[2022-03-10] MEDS: Apixaban 5 MG TAB PO SCH (10:19)
[2022-03-10] MEDS: Furosemide 20 MG TAB PO SCH (10:19)
[2022-03-10 10:20] VITALS: BP 102/69
[2022-03-10] MEDS: Mometasone/Formoterol 200/5 60 PUFF INH SCH (10:20)
[2022-03-10] MEDS: Ezetimibe 10 MG TAB PO SCH (10:20)
[2022-03-10] MEDS ORDERED: Simethicone Chewable 80 MG TAB PO PRN (12:56)
== END 2022-03-10 14:00 | DRG 948 ==
LOC: BURMED 20:18
PROVIDERS: ADMIT Family Medicine; ATTEND Family Medicine
DX: R53.1 Weakness (principal); I50.30 Unspecified diastolic (congestive) heart failure; N12 Tubulo-interstitial nephritis, not specified as acute or chronic; Z20.822 Contact with and (suspected) exposure to COVID-19; I11.0 Hypertensive heart disease with heart failure; E11.9 Type 2 diabetes mellitus without complications; C50.919 Malignant neoplasm of unspecified site of unspecified female breast; F41.9 Anxiety disorder, unspecified; F32.A Depression, unspecified; I48.0 Paroxysmal atrial fibrillation; B37.9 Candidiasis, unspecified; J45.909 Unspecified asthma, uncomplicated; K59.00 Constipation, unspecified; Z96.653 Presence of artificial knee joint, bilateral; Z88.1 Allergy status to other antibiotic agents; Z87.442 Personal history of urinary calculi; Z88.2 Allergy status to sulfonamides; Z88.0 Allergy status to penicillin; Z88.8 Allergy status to other drugs, medicaments and biological substances; Z79.84 Long term (current) use of oral hypoglycemic drugs; Z79.899 Other long term (current) drug therapy; Z90.49 Acquired absence of other specified parts of digestive tract; Z90.710 Acquired absence of both cervix and uterus; Z90.10 Acquired absence of unspecified breast and nipple
CPT/HCPCS: 36415; 36416; 71046; 74018; 80048; 80053; 83880; 85025; 85610; 85730; 87086; 87811; 94664; J2185; J3490; J7611; Q0162; U0003; U0005

== ENCOUNTER 2022-04-17 22:44 | Emergency (ER) | payer MEDICARE ==
[2022-04-17 23:21] LABS: #Eosinphils 0.4 thou/uL (0.0-0.7); #Lymphocytes 1.4 thou/uL (1.20-3.40); #Monocytes 0.4 thou/uL (0.11-0.59); #Neutrophils 3.3 thou/uL (1.40-6.50); %Basophils 0.6 % (0.0-1.0); %Eosinophils 6.8 % (0.0-10.0); %Lymphocytes 24.6 % (21.0-51.0); %Monocytes 7.5 % (0.0-10.0); %Neutrophils 60.5 % (42.0-75.0); Hemoglobin 10.8 g/dL (12.0-16.0); Mean Corpuscular HGB CONC 32.9 g/dL (32.0-36.0); Mean Corpuscular Hemoglobin 28.3 pg (27.0-31.0); Mean Corpuscular Volume 86.2 fl (78.0-98.0); Mean Platelet Volume 8.4 fL (7.4-10.4); Platelet Count 232 thou/uL (130-400); RBC Distribution Width 15.8 % (11.5-14.5); Red Blood Cell (RBC) Count 3.79 mill/uL (4.20-5.40); White Blood Cell (WBC) Count 5.5 thou/uL (4.8-10.8)
[2022-04-17 23:41] LABS: ALT (SGPT) 8 U/L (8-55); AST (SGOT) 10 U/L (5-34); Albumin 2.9 g/dL (3.4-4.8); Alkaline Phosphatase 42 U/L (40-110); Anion Gap 14 mmol/L (10-20); BUN (Urea Nitrogen) 21 mg/dL (9.8-20.1); Bilirubin, Total 0.5 mg/dL (0.2-1.2); Calc. Creatinine Clearance 0 mL/min (70-130); Calcium 8.5 mg/dL (7.8-10.44); Carbon Dioxide 35 mmol/L (23-31); Chloride 99 mmol/L (98-107); Estimated GFR 75; Globulin 2.3 g/dL (2.4-3.5); Glucose 113 mg/dL (83-110); Protein, Total 5.2 g/dL (5.8-8.1); Sodium 145 mmol/L (136-145)
[2022-04-17 23:49] LABS: Potassium 2.7 mmol/L (3.5-5.1)
[2022-04-17] MEDS ORDERED: Potassium Chloride 20 MEQ TAB ONE ×2 (23:53→23:58)
== END 2022-04-18 00:40 | disposition short-term general hospital (02) ==
LOC: BURERS 22:44
DX: I11.0 Hypertensive heart disease with heart failure (principal); I50.9 Heart failure, unspecified; E87.6 Hypokalemia; Z79.01 Long term (current) use of anticoagulants; Z79.899 Other long term (current) drug therapy
CPT/HCPCS: 36415; 71045; 80053; 83880; 84484; 85025; 93005

== ENCOUNTER 2022-04-24 19:25 | Inpatient (IN) | payer MEDICARE ==
[2022-04-24] MEDS ORDERED: Acetaminophen 325 MG TAB PO PRN (23:11)
[2022-04-24] MEDS ORDERED: Bupropion 150 MG XL TAB PO SCH (23:30)
[2022-04-24] MEDS ORDERED: Senokot 8.6 MG TAB PO SCH (23:30)
[2022-04-24] MEDS ORDERED: hydrOXYzine 25 MG TAB PO SCH (23:45)
[2022-04-24] MEDS ORDERED: Apixaban 5 MG TAB PO SCH (23:45)
[2022-04-25] MEDS ORDERED: Benzonatate 100 MG CAP PO PRN (05:34)
[2022-04-25] MEDS ORDERED: Acetaminophen 325 MG TAB PO PRN (05:34)
[2022-04-25] MEDS ORDERED: Acetaminophen/Codeine 30-300mg Tablet PO PRN (05:34)
[2022-04-25] MEDS ORDERED: Bupropion 150 MG XL TAB PO SCH (09:00)
[2022-04-25] MEDS ORDERED: Senokot 8.6 MG TAB PO SCH (09:00)
[2022-04-25] MEDS ORDERED: Levalbuterol HCl 0.63 MG/3 ML NEB NEB SCH (09:00)
[2022-04-25] MEDS ORDERED: Non-Formulary Item 1 EACH (Omeprazole [Omeprazole] 20 MG Capsule.Dr) PO SCH (09:00)
[2022-04-25] MEDS ORDERED: Apixaban 5 MG TAB PO SCH ×2 (09:00)
[2022-04-25] MEDS: Nystatin 500,000 UNITS/5 ML UDCUP SSW SCH ×4 (09:08→20:22)
[2022-04-25] MEDS: Trospium 20 MG TAB PO SCH ×2 (09:08→20:23)
[2022-04-25] MEDS: Spironolactone 25 MG TAB PO SCH (09:08)
[2022-04-25] MEDS: Apixaban 5 MG TAB PO SCH ×2 (09:09→20:23)
[2022-04-25] MEDS: Letrozole 2.5 MG TAB PO SCH (09:09)
[2022-04-25] MEDS: Furosemide 40 MG TAB PO SCH (09:09)
[2022-04-25] MEDS: Ezetimibe 10 MG TAB PO SCH (09:09)
[2022-04-25] MEDS: Empagliflozin 10 MG TAB PO SCH (09:09)
[2022-04-25] MEDS: Montelukast Sodium 10 mg Tablet PO SCH (09:09)
[2022-04-25] MEDS: Senokot S 8.6-50 MG TAB PO SCH ×2 (09:10→20:22)
[2022-04-25] MEDS: LUTEIN 6 MG PO SCH (09:11)
[2022-04-25] MEDS: Bupropion 150 MG XL TAB PO SCH ×2 (09:28→20:23)
[2022-04-25] MEDS: Mometasone/Formoterol 200/5 60 PUFF INH SCH ×2 (09:28→20:23)
[2022-04-25] MEDS: MAGNESIUM 250 MG PO SCH (09:35)
[2022-04-25] MEDS ORDERED: predniSONE 20 MG TAB PO SCH (11:30)
[2022-04-25] MEDS ORDERED: Colchicine 0.6 MG TAB PO SCH ×2 (12:00→13:00)
[2022-04-25] MEDS: hydrOXYzine 25 MG TAB PO SCH (20:22)
[2022-04-25] MEDS ORDERED: hydrOXYzine 25 MG TAB PO SCH (21:00)
[2022-04-26] MEDS: Mometasone/Formoterol 200/5 60 PUFF INH SCH ×2 (09:56→21:05)
[2022-04-26] MEDS: Nystatin 500,000 UNITS/5 ML UDCUP SSW SCH ×4 (10:03→21:07)
[2022-04-26] MEDS: Trospium 20 MG TAB PO SCH ×2 (10:03→21:08)
[2022-04-26] MEDS: Spironolactone 25 MG TAB PO SCH (10:03)
[2022-04-26] MEDS: Senokot S 8.6-50 MG TAB PO SCH ×2 (10:03→21:08)
[2022-04-26] MEDS: Empagliflozin 10 MG TAB PO SCH (10:04)
[2022-04-26] MEDS: Montelukast Sodium 10 mg Tablet PO SCH (10:04)
[2022-04-26] MEDS: Bupropion 150 MG XL TAB PO SCH ×2 (10:04→21:08)
[2022-04-26] MEDS: Ezetimibe 10 MG TAB PO SCH (10:04)
[2022-04-26] MEDS: Letrozole 2.5 MG TAB PO SCH (10:04)
[2022-04-26] MEDS: predniSONE 20 MG TAB PO SCH (10:05)
[2022-04-26] MEDS: Apixaban 5 MG TAB PO SCH ×2 (10:05→21:08)
[2022-04-26] MEDS: Furosemide 40 MG TAB PO SCH (10:05)
[2022-04-26] MEDS: LUTEIN 6 MG PO SCH (10:18)
[2022-04-26] MEDS: MAGNESIUM 250 MG PO SCH (10:18)
[2022-04-26 19:20] LABS: Bilirubin Negative (Negative); Blood, Urine Trace (Negative); Clarity Cloudy (Clear); Glucose, Urine (Dipstick) 500 mg/dL (Negative); Ketone, Urine Negative (Negative); Leukocyte Moderate (Negative); Nitrite Negative (Negative); Protein, Urine (Dipstick) 30 mg/dL (Neg-Trace); Specific Gravity, Urine 1.015 (1.005-1.030); Urobilinogen 0.2 mg/dL (Less than 2)
[2022-04-26 19:28] LABS: RBC/HPF 0-3 HPF (0-3); Renal Epithelial 0-3 HPF (None Seen); WBC/HPF Greater Than 50 HPF (0-3)
[2022-04-26 19:29] LABS: Bacteria/HPF 3+ HPF (None Seen)
[2022-04-26 19:30] LABS: Yeast-Budding 1+ HPF (None Seen); Yeast-Hyphae 2+ HPF (None Seen)
[2022-04-26] MEDS: hydrOXYzine 25 MG TAB PO SCH (21:08)
[2022-04-27] MEDS: Mometasone/Formoterol 200/5 60 PUFF INH SCH ×2 (09:16→21:02)
[2022-04-27] MEDS: Spironolactone 25 MG TAB PO SCH (09:19)
[2022-04-27] MEDS: Ezetimibe 10 MG TAB PO SCH (09:20)
[2022-04-27] MEDS: Senokot S 8.6-50 MG TAB PO SCH ×2 (09:20→21:04)
[2022-04-27] MEDS: Trospium 20 MG TAB PO SCH ×2 (09:20→21:05)
[2022-04-27] MEDS: Bupropion 150 MG XL TAB PO SCH ×2 (09:20→21:04)
[2022-04-27] MEDS: Nystatin 500,000 UNITS/5 ML UDCUP SSW SCH ×4 (09:20→21:00)
[2022-04-27] MEDS: Letrozole 2.5 MG TAB PO SCH (09:21)
[2022-04-27] MEDS: Apixaban 5 MG TAB PO SCH ×2 (09:24→21:05)
[2022-04-27] MEDS: Furosemide 40 MG TAB PO SCH (09:24)
[2022-04-27] MEDS: Empagliflozin 10 MG TAB PO SCH (09:25)
[2022-04-27] MEDS: predniSONE 20 MG TAB PO SCH (09:25)
[2022-04-27] MEDS: Montelukast Sodium 10 mg Tablet PO SCH (09:25)
[2022-04-27] MEDS: LUTEIN 6 MG PO SCH (09:26)
[2022-04-27] MEDS: MAGNESIUM 250 MG PO SCH (09:26)
[2022-04-27] MEDS ORDERED: Sulfameth/Trimethoprim DS 800-160mg TAB PO SCH ×2 (12:00→21:00)
[2022-04-27 15:18] VITALS: BMI 28.5
[2022-04-27] MEDS: hydrOXYzine 25 MG TAB PO SCH (21:04)
[2022-04-27] MEDS: Nitrofurantoin Monohyd/M-Cryst 100 MG CAP PO SCH (21:05)
[2022-04-28 05:12] LABS: Hemoglobin 10.3 g/dL (12.0-16.0); Platelet Count 195 thou/uL (130-400)
[2022-04-28] MEDS: Spironolactone 25 MG TAB PO SCH (08:44)
[2022-04-28] MEDS: Trospium 20 MG TAB PO SCH ×2 (08:45→20:52)
[2022-04-28] MEDS: Nitrofurantoin Monohyd/M-Cryst 100 MG CAP PO SCH ×2 (08:45→20:52)
[2022-04-28] MEDS: Bupropion 150 MG XL TAB PO SCH ×2 (08:45→20:52)
[2022-04-28] MEDS: Senokot S 8.6-50 MG TAB PO SCH ×2 (08:45→20:52)
[2022-04-28] MEDS: Ezetimibe 10 MG TAB PO SCH ×2 (08:45→08:46)
[2022-04-28] MEDS: predniSONE 20 MG TAB PO SCH (08:46)
[2022-04-28] MEDS: Letrozole 2.5 MG TAB PO SCH (08:46)
[2022-04-28] MEDS: Montelukast Sodium 10 mg Tablet PO SCH (08:46)
[2022-04-28] MEDS: Furosemide 40 MG TAB PO SCH (08:46)
[2022-04-28] MEDS: Apixaban 5 MG TAB PO SCH ×2 (08:47→20:52)
[2022-04-28] MEDS: Empagliflozin 10 MG TAB PO SCH (08:47)
[2022-04-28] MEDS: Mometasone/Formoterol 200/5 60 PUFF INH SCH ×2 (08:48→21:08)
[2022-04-28] MEDS: LUTEIN 6 MG PO SCH (09:01)
[2022-04-28] MEDS: MAGNESIUM 250 MG PO SCH (09:01)
[2022-04-28] MEDS: Nystatin 500,000 UNITS/5 ML UDCUP SSW SCH ×4 (09:03→20:51)
[2022-04-28] MEDS: hydrOXYzine 25 MG TAB PO SCH (20:52)
[2022-04-29 06:46] VITALS: TEMP 97.6
[2022-04-29] MEDS: Nystatin 500,000 UNITS/5 ML UDCUP SSW SCH (09:48)
[2022-04-29] MEDS: Bupropion 150 MG XL TAB PO SCH (09:48)
[2022-04-29] MEDS: Spironolactone 25 MG TAB PO SCH (09:48)
[2022-04-29] MEDS: Nitrofurantoin Monohyd/M-Cryst 100 MG CAP PO SCH (09:49)
[2022-04-29] MEDS: Apixaban 5 MG TAB PO SCH (09:49)
[2022-04-29] MEDS: Ezetimibe 10 MG TAB PO SCH (09:49)
[2022-04-29] MEDS: Montelukast Sodium 10 mg Tablet PO SCH (09:49)
[2022-04-29] MEDS: Trospium 20 MG TAB PO SCH (09:49)
[2022-04-29] MEDS: predniSONE 20 MG TAB PO SCH (09:49)
[2022-04-29] MEDS: Empagliflozin 10 MG TAB PO SCH (09:49)
[2022-04-29] MEDS: Letrozole 2.5 MG TAB PO SCH (09:49)
[2022-04-29] MEDS: Senokot S 8.6-50 MG TAB PO SCH (09:50)
[2022-04-29] MEDS: Mometasone/Formoterol 200/5 60 PUFF INH SCH (09:50)
[2022-04-29] MEDS: LUTEIN 6 MG PO SCH (09:54)
[2022-04-29] MEDS: MAGNESIUM 250 MG PO SCH (09:54)
[2022-04-29] MEDS: Furosemide 40 MG TAB PO SCH (09:54)
[2022-04-29 11:54] VITALS: BP 93/55
== END 2022-04-29 11:40 | disposition home health service (06) | DRG 948 ==
LOC: BURMED 19:25
PROVIDERS: ADMIT Family Medicine; ATTEND Family Medicine
DX: R53.1 Weakness (principal); I50.32 Chronic diastolic (congestive) heart failure; I48.91 Unspecified atrial fibrillation; I11.0 Hypertensive heart disease with heart failure; E11.9 Type 2 diabetes mellitus without complications; J45.909 Unspecified asthma, uncomplicated; F41.9 Anxiety disorder, unspecified; F32.A Depression, unspecified; R53.81 Other malaise; Z79.899 Other long term (current) drug therapy; Z79.01 Long term (current) use of anticoagulants; Z93.3 Colostomy status
CPT/HCPCS: 36415; 81001; 82565; 85014; 85018; 85049; 94664; J7512; J7612

== ENCOUNTER 2022-07-08 15:40 | Inpatient (IN) | payer MEDICARE ==
[2022-07-08] MEDS ORDERED: ALPRAZolam 0.5 MG TAB PO PRN (17:23)
[2022-07-08] MEDS ORDERED: Benzonatate 100 MG CAP PO PRN (17:23)
[2022-07-08] MEDS ORDERED: Melatonin 3 MG TAB PO PRN (17:23)
[2022-07-08] MEDS ORDERED: Ipratropium/Albuterol 3 ML NEB NEB PRN (17:23)
[2022-07-08] MEDS ORDERED: Levalbuterol HCl 0.63 MG/3 ML NEB NEB SCH (21:00)
[2022-07-08] MEDS: Bupropion 150 MG XL TAB PO SCH (21:06)
[2022-07-08] MEDS: Senokot S 8.6-50 MG TAB PO SCH (21:07)
[2022-07-08] MEDS: Trospium 20 MG TAB PO SCH (21:07)
[2022-07-08] MEDS: hydrOXYzine 25 MG TAB PO SCH (21:07)
[2022-07-08] MEDS: Apixaban 5 MG TAB PO SCH (21:07)
[2022-07-08] MEDS: Megestrol Acetate 40 MG TAB PO SCH (21:07)
[2022-07-08] MEDS: Acetaminophen 325 MG TAB PO PRN (21:10)
[2022-07-08] MEDS: Mometasone/Formoterol 200/5 60 PUFF INH SCH (21:11)
[2022-07-08] MEDS: Lantus 1000 UNITS/10 ML VIAL SC SCH (21:14)
[2022-07-09] MEDS: Mometasone/Formoterol 200/5 60 PUFF INH SCH ×2 (06:01→20:51)
[2022-07-09] MEDS ORDERED: Montelukast Sodium 10 mg Tablet PO SCH (09:00)
[2022-07-09] MEDS: Bupropion 150 MG XL TAB PO SCH ×2 (10:14→20:48)
[2022-07-09] MEDS: Apixaban 5 MG TAB PO SCH ×2 (10:14→20:49)
[2022-07-09] MEDS: Senokot S 8.6-50 MG TAB PO SCH ×2 (10:15→20:48)
[2022-07-09] MEDS: Trospium 20 MG TAB PO SCH ×2 (10:15→20:48)
[2022-07-09] MEDS: Montelukast Sodium 10 mg Tablet PO SCH (10:15)
[2022-07-09] MEDS: Letrozole 2.5 MG TAB PO SCH (10:18)
[2022-07-09] MEDS: Magnesium Oxide 400 MG TAB PO SCH (10:18)
[2022-07-09] MEDS: Saccharomyces boulardii 250 MG CAP PO SCH (10:19)
[2022-07-09] MEDS: Ezetimibe 10 MG TAB PO SCH (10:20)
[2022-07-09] MEDS: Digoxin 0.125 MG TAB PO SCH (10:20)
[2022-07-09] MEDS: Empagliflozin 10 MG TAB PO SCH (10:21)
[2022-07-09] MEDS: Lantus 1000 UNITS/10 ML VIAL SC SCH ×2 (10:21→20:48)
[2022-07-09] MEDS: Furosemide 20 MG TAB PO SCH (10:21)
[2022-07-09] MEDS: Megestrol Acetate 40 MG TAB PO SCH ×2 (10:22→20:49)
[2022-07-09] MEDS: Acetaminophen 325 MG TAB PO PRN (14:51)
[2022-07-09] MEDS: hydrOXYzine 25 MG TAB PO SCH (20:49)
[2022-07-10] MEDS: Digoxin 0.125 MG TAB PO SCH (08:14)
[2022-07-10] MEDS: Ezetimibe 10 MG TAB PO SCH (08:15)
[2022-07-10] MEDS: Trospium 20 MG TAB PO SCH ×2 (08:16→21:15)
[2022-07-10] MEDS: Letrozole 2.5 MG TAB PO SCH (08:16)
[2022-07-10] MEDS: Apixaban 5 MG TAB PO SCH ×2 (08:16→21:15)
[2022-07-10] MEDS: Furosemide 20 MG TAB PO SCH (08:17)
[2022-07-10] MEDS: Montelukast Sodium 10 mg Tablet PO SCH (08:17)
[2022-07-10] MEDS: Empagliflozin 10 MG TAB PO SCH (08:17)
[2022-07-10] MEDS: Magnesium Oxide 400 MG TAB PO SCH (08:18)
[2022-07-10] MEDS: Senokot S 8.6-50 MG TAB PO SCH ×2 (08:18→21:15)
[2022-07-10] MEDS: Saccharomyces boulardii 250 MG CAP PO SCH (08:18)
[2022-07-10] MEDS: Lantus 1000 UNITS/10 ML VIAL SC SCH ×2 (08:20→21:12)
[2022-07-10] MEDS: Megestrol Acetate 40 MG TAB PO SCH ×2 (08:29→21:15)
[2022-07-10] MEDS: Mometasone/Formoterol 200/5 60 PUFF INH SCH ×2 (08:30→21:12)
[2022-07-10] MEDS: Bupropion 150 MG XL TAB PO SCH ×2 (08:37→21:14)
[2022-07-10] MEDS: hydrOXYzine 25 MG TAB PO SCH (21:15)
[2022-07-11] MEDS: Lantus 1000 UNITS/10 ML VIAL SC SCH ×2 (09:00→20:16)
[2022-07-11] MEDS: Mometasone/Formoterol 200/5 60 PUFF INH SCH ×2 (09:02→20:18)
[2022-07-11] MEDS: Senokot S 8.6-50 MG TAB PO SCH ×2 (09:08→20:13)
[2022-07-11] MEDS: Megestrol Acetate 40 MG TAB PO SCH ×2 (09:08→20:14)
[2022-07-11] MEDS: Bupropion 150 MG XL TAB PO SCH ×2 (09:08→20:12)
[2022-07-11] MEDS: Ezetimibe 10 MG TAB PO SCH (09:09)
[2022-07-11] MEDS: Saccharomyces boulardii 250 MG CAP PO SCH (09:09)
[2022-07-11] MEDS: Furosemide 20 MG TAB PO SCH (09:09)
[2022-07-11] MEDS: Trospium 20 MG TAB PO SCH ×2 (09:09→20:12)
[2022-07-11] MEDS: Montelukast Sodium 10 mg Tablet PO SCH (09:09)
[2022-07-11] MEDS: Letrozole 2.5 MG TAB PO SCH (09:09)
[2022-07-11] MEDS: Magnesium Oxide 400 MG TAB PO SCH (09:09)
[2022-07-11] MEDS: Empagliflozin 10 MG TAB PO SCH (09:13)
[2022-07-11] MEDS: Digoxin 0.125 MG TAB PO SCH (09:13)
[2022-07-11] MEDS: Apixaban 5 MG TAB PO SCH ×2 (09:14→20:14)
[2022-07-11 16:14] LABS: Bilirubin Negative (Negative); Blood, Urine Large (Negative); Clarity Slightly Cloudy (Clear); Glucose, Urine (Dipstick) 500 mg/dL (Negative); Ketone, Urine Negative (Negative); Leukocyte Small (Negative); Nitrite Positive (Negative); Protein, Urine (Dipstick) 100 mg/dL (Neg-Trace); Specific Gravity, Urine 1.015 (1.005-1.030); Urobilinogen 0.2 mg/dL (Less than 2); pH, Urine 6.5 (5.0-9.0)
[2022-07-11 16:29] LABS: CAUTI Indications for Culture Dysuria,urgency,freq; Squamous Epithelial 0-3 HPF (0-3)
[2022-07-11 16:30] LABS: Bacteria/HPF 3+ HPF (None Seen)
[2022-07-11 16:32] LABS: Urine Culture Reflex Yes Yes
[2022-07-11] MEDS: hydrOXYzine 25 MG TAB PO SCH (20:13)
[2022-07-11] MEDS: Nitrofurantoin Monohyd/M-Cryst 100 MG CAP PO SCH (20:15)
[2022-07-12 05:44] LABS: #Basophils 0.1 thou/uL (0.0-0.2); #Eosinphils 0.1 thou/uL (0.0-0.7); #Lymphocytes 0.7 thou/uL (1.20-3.40); #Monocytes 0.7 thou/uL (0.11-0.59); #Neutrophils 10.5 thou/uL (1.40-6.50); %Basophils 0.6 % (0.0-1.0); %Eosinophils 0.8 % (0.0-10.0); %Monocytes 5.8 % (0.0-10.0); %Neutrophils 86.8 % (42.0-75.0); Hemoglobin 9.5 g/dL (12.0-16.0); Mean Corpuscular HGB CONC 32.7 g/dL (32.0-36.0); Mean Corpuscular Hemoglobin 26.8 pg (27.0-31.0); Mean Corpuscular Volume 81.8 fl (78.0-98.0); Mean Platelet Volume 8.1 fL (7.4-10.4); Platelet Count 142 10x3/uL (130-400); RBC Distribution Width 13.6 % (11.5-14.5); Red Blood Cell (RBC) Count 3.53 mill/uL (4.20-5.40); White Blood Cell (WBC) Count 12.1 10x3/uL (4.8-10.8)
[2022-07-12 06:03] LABS: ALT (SGPT) 24 U/L (8-55); AST (SGOT) 9 U/L (5-34); Albumin 2.9 g/dL (3.4-4.8); Alkaline Phosphatase 81 U/L (40-110); Anion Gap 17 mmol/L (10-20); BUN (Urea Nitrogen) 22 mg/dL (9.8-20.1); Calc. Creatinine Clearance 44 mL/min (70-130); Calcium 9.2 mg/dL (7.8-10.44); Carbon Dioxide 22 mmol/L (23-31); Chloride 102 mmol/L (98-107); Estimated GFR 50; Globulin 2.6 g/dL (2.4-3.5); Glucose 84 mg/dL (83-110); Potassium 3.9 mmol/L (3.5-5.1); Protein, Total 5.5 g/dL (5.8-8.1); Sodium 137 mmol/L (136-145)
[2022-07-12] MEDS: Senokot S 8.6-50 MG TAB PO SCH ×2 (09:38→20:36)
[2022-07-12] MEDS: Trospium 20 MG TAB PO SCH ×2 (09:38→20:35)
[2022-07-12] MEDS: Megestrol Acetate 40 MG TAB PO SCH ×2 (09:39→20:36)
[2022-07-12] MEDS: Ezetimibe 10 MG TAB PO SCH (09:39)
[2022-07-12] MEDS: Digoxin 0.125 MG TAB PO SCH (09:39)
[2022-07-12] MEDS: Montelukast Sodium 10 mg Tablet PO SCH (09:39)
[2022-07-12] MEDS: Letrozole 2.5 MG TAB PO SCH (09:40)
[2022-07-12] MEDS: Nitrofurantoin Monohyd/M-Cryst 100 MG CAP PO SCH ×2 (09:40→20:36)
[2022-07-12] MEDS: Furosemide 20 MG TAB PO SCH (09:41)
[2022-07-12] MEDS: Apixaban 5 MG TAB PO SCH ×2 (09:41→20:36)
[2022-07-12] MEDS: Magnesium Oxide 400 MG TAB PO SCH (09:41)
[2022-07-12] MEDS: Saccharomyces boulardii 250 MG CAP PO SCH (09:41)
[2022-07-12] MEDS: Empagliflozin 10 MG TAB PO SCH (09:41)
[2022-07-12] MEDS: Mometasone/Formoterol 200/5 60 PUFF INH SCH ×2 (09:46→20:37)
[2022-07-12] MEDS: Lantus 1000 UNITS/10 ML VIAL SC SCH ×2 (09:48→20:37)
[2022-07-12] MEDS: Bupropion 150 MG XL TAB PO SCH ×2 (09:57→20:36)
[2022-07-12] MEDS: hydrOXYzine 25 MG TAB PO SCH (20:36)
[2022-07-13] MEDS: Senokot S 8.6-50 MG TAB PO SCH ×2 (09:50→20:31)
[2022-07-13] MEDS: Montelukast Sodium 10 mg Tablet PO SCH (09:50)
[2022-07-13] MEDS: Trospium 20 MG TAB PO SCH ×2 (09:50→20:27)
[2022-07-13] MEDS: Bupropion 150 MG XL TAB PO SCH ×2 (09:50→20:28)
[2022-07-13] MEDS: Megestrol Acetate 40 MG TAB PO SCH ×2 (09:51→20:30)
[2022-07-13] MEDS: Ezetimibe 10 MG TAB PO SCH (09:51)
[2022-07-13] MEDS: Apixaban 5 MG TAB PO SCH ×2 (09:51→20:29)
[2022-07-13] MEDS: Letrozole 2.5 MG TAB PO SCH (09:51)
[2022-07-13] MEDS: Magnesium Oxide 400 MG TAB PO SCH (09:51)
[2022-07-13] MEDS: Digoxin 0.125 MG TAB PO SCH (09:51)
[2022-07-13] MEDS: Nitrofurantoin Monohyd/M-Cryst 100 MG CAP PO SCH ×2 (09:51→20:30)
[2022-07-13] MEDS: Saccharomyces boulardii 250 MG CAP PO SCH (09:51)
[2022-07-13] MEDS: Mometasone/Formoterol 200/5 60 PUFF INH SCH ×2 (09:52→20:35)
[2022-07-13] MEDS: Empagliflozin 10 MG TAB PO SCH (09:52)
[2022-07-13] MEDS: Furosemide 20 MG TAB PO SCH (09:52)
[2022-07-13] MEDS: Lantus 1000 UNITS/10 ML VIAL SC SCH ×2 (09:54→20:34)
[2022-07-13] MEDS: hydrOXYzine 25 MG TAB PO SCH (20:28)
[2022-07-14] MEDS: Apixaban 5 MG TAB PO SCH ×2 (09:53→21:09)
[2022-07-14] MEDS: Furosemide 20 MG TAB PO SCH (09:53)
[2022-07-14] MEDS: Nitrofurantoin Monohyd/M-Cryst 100 MG CAP PO SCH ×2 (09:53→21:07)
[2022-07-14] MEDS: Bupropion 150 MG XL TAB PO SCH ×2 (09:55→21:08)
[2022-07-14] MEDS: Empagliflozin 10 MG TAB PO SCH (09:57)
[2022-07-14] MEDS: Digoxin 0.125 MG TAB PO SCH (09:58)
[2022-07-14] MEDS: Megestrol Acetate 40 MG TAB PO SCH ×2 (10:01→21:09)
[2022-07-14] MEDS: Montelukast Sodium 10 mg Tablet PO SCH (10:02)
[2022-07-14] MEDS: Ezetimibe 10 MG TAB PO SCH (10:02)
[2022-07-14] MEDS: Trospium 20 MG TAB PO SCH ×2 (10:02→21:08)
[2022-07-14] MEDS: Magnesium Oxide 400 MG TAB PO SCH (10:02)
[2022-07-14] MEDS: Senokot S 8.6-50 MG TAB PO SCH ×2 (10:02→21:16)
[2022-07-14] MEDS: Saccharomyces boulardii 250 MG CAP PO SCH (10:03)
[2022-07-14] MEDS: Mometasone/Formoterol 200/5 60 PUFF INH SCH ×2 (10:04→21:12)
[2022-07-14] MEDS: Lantus 1000 UNITS/10 ML VIAL SC SCH ×2 (10:14→21:05)
[2022-07-14] MEDS: Letrozole 2.5 MG TAB PO SCH (10:16)
[2022-07-14] MEDS: hydrOXYzine 25 MG TAB PO SCH (21:05)
[2022-07-14] MEDS: Acetaminophen 325 MG TAB PO PRN (21:15)
[2022-07-15] MEDS: Senokot S 8.6-50 MG TAB PO SCH ×2 (08:27→20:57)
[2022-07-15] MEDS: Trospium 20 MG TAB PO SCH ×2 (08:27→20:57)
[2022-07-15] MEDS: Bupropion 150 MG XL TAB PO SCH ×2 (08:27→20:57)
[2022-07-15] MEDS: Ezetimibe 10 MG TAB PO SCH (08:28)
[2022-07-15] MEDS: Nitrofurantoin Monohyd/M-Cryst 100 MG CAP PO SCH ×2 (08:28→20:57)
[2022-07-15] MEDS: Saccharomyces boulardii 250 MG CAP PO SCH (08:29)
[2022-07-15] MEDS: Magnesium Oxide 400 MG TAB PO SCH (08:29)
[2022-07-15] MEDS: Digoxin 0.125 MG TAB PO SCH (08:29)
[2022-07-15] MEDS: Letrozole 2.5 MG TAB PO SCH (08:29)
[2022-07-15] MEDS: Montelukast Sodium 10 mg Tablet PO SCH (08:29)
[2022-07-15] MEDS: Megestrol Acetate 40 MG TAB PO SCH ×2 (08:29→20:57)
[2022-07-15] MEDS: Empagliflozin 10 MG TAB PO SCH (08:30)
[2022-07-15] MEDS: Furosemide 20 MG TAB PO SCH (08:30)
[2022-07-15] MEDS: Apixaban 5 MG TAB PO SCH ×2 (08:31→20:57)
[2022-07-15] MEDS: Lantus 1000 UNITS/10 ML VIAL SC SCH ×2 (08:55→20:56)
[2022-07-15] MEDS: Mometasone/Formoterol 200/5 60 PUFF INH SCH ×2 (08:58→20:56)
[2022-07-15] MEDS: hydrOXYzine 25 MG TAB PO SCH (20:57)
[2022-07-15] MEDS: Acetaminophen 325 MG TAB PO PRN (20:57)
[2022-07-16] MEDS: Digoxin 0.125 MG TAB PO SCH (08:57)
[2022-07-16] MEDS: Bupropion 150 MG XL TAB PO SCH ×2 (08:57→20:24)
[2022-07-16] MEDS: Mometasone/Formoterol 200/5 60 PUFF INH SCH ×2 (11:30→20:23)
[2022-07-16] MEDS: Megestrol Acetate 40 MG TAB PO SCH ×2 (11:32→20:24)
[2022-07-16] MEDS: Senokot S 8.6-50 MG TAB PO SCH ×2 (11:32→20:24)
[2022-07-16] MEDS: Apixaban 5 MG TAB PO SCH ×2 (11:33→20:24)
[2022-07-16] MEDS: Ezetimibe 10 MG TAB PO SCH (11:33)
[2022-07-16] MEDS: Magnesium Oxide 400 MG TAB PO SCH (11:33)
[2022-07-16] MEDS: Furosemide 20 MG TAB PO SCH (11:33)
[2022-07-16] MEDS: Letrozole 2.5 MG TAB PO SCH (11:33)
[2022-07-16] MEDS: Montelukast Sodium 10 mg Tablet PO SCH (11:33)
[2022-07-16] MEDS: Empagliflozin 10 MG TAB PO SCH (11:33)
[2022-07-16] MEDS: Trospium 20 MG TAB PO SCH ×2 (11:33→20:24)
[2022-07-16] MEDS: Nitrofurantoin Monohyd/M-Cryst 100 MG CAP PO SCH ×2 (11:34→20:24)
[2022-07-16] MEDS: Saccharomyces boulardii 250 MG CAP PO SCH (11:34)
[2022-07-16] MEDS: Lantus 1000 UNITS/10 ML VIAL SC SCH ×2 (11:37→20:25)
[2022-07-16] MEDS: Acetaminophen 325 MG TAB PO PRN (15:21)
[2022-07-16] MEDS: hydrOXYzine 25 MG TAB PO SCH (20:24)
[2022-07-17] MEDS: Acetaminophen 325 MG TAB PO PRN (05:00)
[2022-07-17] MEDS: Ezetimibe 10 MG TAB PO SCH (09:55)
[2022-07-17] MEDS: Digoxin 0.125 MG TAB PO SCH (09:55)
[2022-07-17] MEDS: Bupropion 150 MG XL TAB PO SCH ×2 (09:56→20:45)
[2022-07-17] MEDS: Trospium 20 MG TAB PO SCH ×2 (09:56→20:12)
[2022-07-17] MEDS: Empagliflozin 10 MG TAB PO SCH (09:57)
[2022-07-17] MEDS: Senokot S 8.6-50 MG TAB PO SCH ×2 (09:57→20:12)
[2022-07-17] MEDS: Saccharomyces boulardii 250 MG CAP PO SCH (09:57)
[2022-07-17] MEDS: Montelukast Sodium 10 mg Tablet PO SCH (09:57)
[2022-07-17] MEDS: Letrozole 2.5 MG TAB PO SCH (09:57)
[2022-07-17] MEDS: Furosemide 20 MG TAB PO SCH (09:58)
[2022-07-17] MEDS: Mometasone/Formoterol 200/5 60 PUFF INH SCH ×2 (09:58→20:11)
[2022-07-17] MEDS: Megestrol Acetate 40 MG TAB PO SCH ×2 (09:58→20:12)
[2022-07-17] MEDS: Apixaban 5 MG TAB PO SCH ×2 (09:58→20:11)
[2022-07-17] MEDS: Nitrofurantoin Monohyd/M-Cryst 100 MG CAP PO SCH ×2 (09:58→20:12)
[2022-07-17] MEDS: Magnesium Oxide 400 MG TAB PO SCH (09:59)
[2022-07-17] MEDS: LUTEIN 6 MG PO SCH (10:02)
[2022-07-17] MEDS: Lantus 1000 UNITS/10 ML VIAL SC SCH ×2 (10:09→20:11)
[2022-07-17] MEDS: hydrOXYzine 25 MG TAB PO SCH (20:12)
[2022-07-18] MEDS: Bupropion 150 MG XL TAB PO SCH ×2 (08:57→21:33)
[2022-07-18] MEDS: Trospium 20 MG TAB PO SCH ×2 (08:57→21:33)
[2022-07-18] MEDS: Magnesium Oxide 400 MG TAB PO SCH (08:57)
[2022-07-18] MEDS: Senokot S 8.6-50 MG TAB PO SCH ×2 (08:57→21:33)
[2022-07-18] MEDS: Letrozole 2.5 MG TAB PO SCH (08:58)
[2022-07-18] MEDS: Montelukast Sodium 10 mg Tablet PO SCH (08:58)
[2022-07-18] MEDS: Saccharomyces boulardii 250 MG CAP PO SCH (08:58)
[2022-07-18] MEDS: Ezetimibe 10 MG TAB PO SCH (08:58)
[2022-07-18] MEDS: Furosemide 20 MG TAB PO SCH (09:01)
[2022-07-18] MEDS: Digoxin 0.125 MG TAB PO SCH (09:01)
[2022-07-18] MEDS: Megestrol Acetate 40 MG TAB PO SCH ×2 (09:01→21:49)
[2022-07-18] MEDS: Empagliflozin 10 MG TAB PO SCH (09:02)
[2022-07-18] MEDS: Nitrofurantoin Monohyd/M-Cryst 100 MG CAP PO SCH (09:02)
[2022-07-18] MEDS: Apixaban 5 MG TAB PO SCH ×2 (09:02→21:33)
[2022-07-18] MEDS: Mometasone/Formoterol 200/5 60 PUFF INH SCH ×2 (09:03→21:47)
[2022-07-18] MEDS: Lantus 1000 UNITS/10 ML VIAL SC SCH ×2 (09:04→21:32)
[2022-07-18] MEDS: LUTEIN 6 MG PO SCH (09:06)
[2022-07-18] MEDS: Acetaminophen 325 MG TAB PO PRN (11:47)
[2022-07-18] MEDS: hydrOXYzine 25 MG TAB PO SCH (21:33)
[2022-07-19 06:03] LABS: Hemoglobin 9.7 g/dL (12.0-16.0); Platelet Count 284 10x3/uL (130-400)
[2022-07-19] MEDS: Mometasone/Formoterol 200/5 60 PUFF INH SCH ×2 (08:51→21:45)
[2022-07-19] MEDS: Bupropion 150 MG XL TAB PO SCH ×2 (08:52→21:42)
[2022-07-19] MEDS: LUTEIN 6 MG PO SCH (08:52)
[2022-07-19] MEDS: Furosemide 20 MG TAB PO SCH (08:53)
[2022-07-19] MEDS: Letrozole 2.5 MG TAB PO SCH (08:53)
[2022-07-19] MEDS: Saccharomyces boulardii 250 MG CAP PO SCH (08:53)
[2022-07-19] MEDS: Trospium 20 MG TAB PO SCH ×2 (08:53→21:42)
[2022-07-19] MEDS: Senokot S 8.6-50 MG TAB PO SCH ×2 (08:53→21:42)
[2022-07-19] MEDS: Ezetimibe 10 MG TAB PO SCH (08:54)
[2022-07-19] MEDS: Digoxin 0.125 MG TAB PO SCH (08:54)
[2022-07-19] MEDS: Magnesium Oxide 400 MG TAB PO SCH (08:54)
[2022-07-19] MEDS: Megestrol Acetate 40 MG TAB PO SCH ×2 (08:55→21:42)
[2022-07-19] MEDS: Montelukast Sodium 10 mg Tablet PO SCH (08:55)
[2022-07-19] MEDS: Apixaban 5 MG TAB PO SCH ×2 (08:57→21:42)
[2022-07-19] MEDS: Lantus 1000 UNITS/10 ML VIAL SC SCH ×2 (08:58→21:41)
[2022-07-19] MEDS: Nystatin Powder 15 GM BOT TOP SCH (21:42)
[2022-07-19] MEDS: hydrOXYzine 25 MG TAB PO SCH (21:43)
[2022-07-20] MEDS: LUTEIN 6 MG PO SCH (08:59)
[2022-07-20] MEDS: Mometasone/Formoterol 200/5 60 PUFF INH SCH ×2 (09:00→21:24)
[2022-07-20] MEDS: Lantus 1000 UNITS/10 ML VIAL SC SCH ×2 (09:02→21:37)
[2022-07-20] MEDS: Digoxin 0.125 MG TAB PO SCH (09:07)
[2022-07-20] MEDS: Letrozole 2.5 MG TAB PO SCH (09:07)
[2022-07-20] MEDS: Magnesium Oxide 400 MG TAB PO SCH (09:07)
[2022-07-20] MEDS: Furosemide 20 MG TAB PO SCH (09:11)
[2022-07-20] MEDS: Trospium 20 MG TAB PO SCH ×2 (09:11→21:23)
[2022-07-20] MEDS: Apixaban 5 MG TAB PO SCH ×2 (09:11→21:23)
[2022-07-20] MEDS: Montelukast Sodium 10 mg Tablet PO SCH (09:11)
[2022-07-20] MEDS: Senokot S 8.6-50 MG TAB PO SCH ×2 (09:11→21:23)
[2022-07-20] MEDS: Megestrol Acetate 40 MG TAB PO SCH ×2 (09:11→21:23)
[2022-07-20] MEDS: Saccharomyces boulardii 250 MG CAP PO SCH (09:11)
[2022-07-20] MEDS: Ezetimibe 10 MG TAB PO SCH (09:11)
[2022-07-20] MEDS: Bupropion 150 MG XL TAB PO SCH ×2 (09:13→21:23)
[2022-07-20] MEDS: Nystatin Powder 15 GM BOT TOP SCH ×2 (09:13→21:24)
[2022-07-20] MEDS: hydrOXYzine 25 MG TAB PO SCH (21:23)
[2022-07-21] MEDS: LUTEIN 6 MG PO SCH (09:05)
[2022-07-21] MEDS: Mometasone/Formoterol 200/5 60 PUFF INH SCH ×2 (09:06→21:08)
[2022-07-21] MEDS: Lantus 1000 UNITS/10 ML VIAL SC SCH ×2 (09:07→21:07)
[2022-07-21] MEDS: Digoxin 0.125 MG TAB PO SCH (09:13)
[2022-07-21] MEDS: Senokot S 8.6-50 MG TAB PO SCH ×2 (09:14→21:06)
[2022-07-21] MEDS: Apixaban 5 MG TAB PO SCH ×2 (09:14→21:07)
[2022-07-21] MEDS: Bupropion 150 MG XL TAB PO SCH ×2 (09:14→21:07)
[2022-07-21] MEDS: Ezetimibe 10 MG TAB PO SCH (09:14)
[2022-07-21] MEDS: Montelukast Sodium 10 mg Tablet PO SCH (09:14)
[2022-07-21] MEDS: Saccharomyces boulardii 250 MG CAP PO SCH (09:14)
[2022-07-21] MEDS: Magnesium Oxide 400 MG TAB PO SCH (09:14)
[2022-07-21] MEDS: Letrozole 2.5 MG TAB PO SCH (09:15)
[2022-07-21] MEDS: Furosemide 20 MG TAB PO SCH (09:15)
[2022-07-21] MEDS: Nystatin Powder 15 GM BOT TOP SCH ×2 (09:15→21:07)
[2022-07-21] MEDS: Trospium 20 MG TAB PO SCH ×2 (09:15→21:06)
[2022-07-21] MEDS: Megestrol Acetate 40 MG TAB PO SCH ×2 (09:15→21:06)
[2022-07-21] MEDS: Acetaminophen 325 MG TAB PO PRN (15:25)
[2022-07-21] MEDS: hydrOXYzine 25 MG TAB PO SCH (21:07)
[2022-07-22] MEDS: Mometasone/Formoterol 200/5 60 PUFF INH SCH ×2 (08:57→20:19)
[2022-07-22] MEDS: LUTEIN 6 MG PO SCH (08:59)
[2022-07-22] MEDS: Trospium 20 MG TAB PO SCH ×2 (09:00→20:17)
[2022-07-22] MEDS: Lantus 1000 UNITS/10 ML VIAL SC SCH ×2 (09:00→20:28)
[2022-07-22] MEDS: Montelukast Sodium 10 mg Tablet PO SCH (09:01)
[2022-07-22] MEDS: Digoxin 0.125 MG TAB PO SCH (09:01)
[2022-07-22] MEDS: Ezetimibe 10 MG TAB PO SCH (09:01)
[2022-07-22] MEDS: Apixaban 5 MG TAB PO SCH ×2 (09:01→20:17)
[2022-07-22] MEDS: Furosemide 20 MG TAB PO SCH (09:01)
[2022-07-22] MEDS: Senokot S 8.6-50 MG TAB PO SCH ×2 (09:01→20:17)
[2022-07-22] MEDS: Letrozole 2.5 MG TAB PO SCH (09:01)
[2022-07-22] MEDS: Megestrol Acetate 40 MG TAB PO SCH ×2 (09:01→20:18)
[2022-07-22] MEDS: Bupropion 150 MG XL TAB PO SCH ×2 (09:02→20:17)
[2022-07-22] MEDS: Magnesium Oxide 400 MG TAB PO SCH (09:02)
[2022-07-22] MEDS: Saccharomyces boulardii 250 MG CAP PO SCH (09:03)
[2022-07-22] MEDS: Nystatin Powder 15 GM BOT TOP SCH ×2 (09:03→20:18)
[2022-07-22 10:24] LABS: Bilirubin Negative (Negative); Blood, Urine Moderate (Negative); Clarity Turbid (Clear); Glucose, Urine (Dipstick) Negative (Negative); Ketone, Urine Negative (Negative); Leukocyte Large (Negative); Nitrite Negative (Negative); Protein, Urine (Dipstick) 100 mg/dL (Neg-Trace); Urobilinogen 0.2 mg/dL (Less than 2)
[2022-07-22 11:10] LABS: Bacteria/HPF 3+ HPF (None Seen); CAUTI Indications for Culture Dysuria,urgency,freq; RBC/HPF 0-3 HPF (0-3); Squamous Epithelial 0-3 HPF (0-3); WBC/HPF Greater Than 50 HPF (0-3)
[2022-07-22 11:15] LABS: Urine Culture Reflex Yes Yes
[2022-07-22] MEDS: hydrOXYzine 25 MG TAB PO SCH (20:17)
[2022-07-23] MEDS: Megestrol Acetate 40 MG TAB PO SCH ×2 (09:43→20:53)
[2022-07-23] MEDS: Apixaban 5 MG TAB PO SCH ×2 (09:43→20:54)
[2022-07-23] MEDS: Letrozole 2.5 MG TAB PO SCH (09:43)
[2022-07-23] MEDS: Ezetimibe 10 MG TAB PO SCH (09:43)
[2022-07-23] MEDS: Furosemide 20 MG TAB PO SCH (09:43)
[2022-07-23] MEDS: Montelukast Sodium 10 mg Tablet PO SCH (09:43)
[2022-07-23] MEDS: Bupropion 150 MG XL TAB PO SCH ×2 (09:43→20:53)
[2022-07-23] MEDS: Magnesium Oxide 400 MG TAB PO SCH (09:43)
[2022-07-23] MEDS: Senokot S 8.6-50 MG TAB PO SCH ×2 (09:44→20:53)
[2022-07-23] MEDS: Digoxin 0.125 MG TAB PO SCH (09:44)
[2022-07-23] MEDS: Saccharomyces boulardii 250 MG CAP PO SCH (09:44)
[2022-07-23] MEDS: Nitrofurantoin Monohyd/M-Cryst 100 MG CAP PO SCH ×2 (09:44→20:54)
[2022-07-23] MEDS: Trospium 20 MG TAB PO SCH ×2 (09:44→20:53)
[2022-07-23] MEDS: LUTEIN 6 MG PO SCH (09:45)
[2022-07-23] MEDS: Mometasone/Formoterol 200/5 60 PUFF INH SCH ×2 (09:46→20:54)
[2022-07-23] MEDS: Nystatin Powder 15 GM BOT TOP SCH ×2 (09:46→20:59)
[2022-07-23] MEDS: Lantus 1000 UNITS/10 ML VIAL SC SCH ×2 (09:47→20:53)
[2022-07-23] MEDS: hydrOXYzine 25 MG TAB PO SCH (20:54)
[2022-07-24] MEDS: Lantus 1000 UNITS/10 ML VIAL SC SCH ×2 (08:19→21:41)
[2022-07-24] MEDS: Senokot S 8.6-50 MG TAB PO SCH ×2 (08:22→21:41)
[2022-07-24] MEDS: Bupropion 150 MG XL TAB PO SCH ×2 (08:23→21:42)
[2022-07-24] MEDS: Trospium 20 MG TAB PO SCH ×2 (08:24→21:42)
[2022-07-24] MEDS: Digoxin 0.125 MG TAB PO SCH (08:25)
[2022-07-24] MEDS: Ezetimibe 10 MG TAB PO SCH (08:25)
[2022-07-24] MEDS: Nitrofurantoin Monohyd/M-Cryst 100 MG CAP PO SCH ×2 (08:26→21:43)
[2022-07-24] MEDS: Apixaban 5 MG TAB PO SCH ×2 (08:27→21:42)
[2022-07-24] MEDS: Letrozole 2.5 MG TAB PO SCH (08:27)
[2022-07-24] MEDS: Furosemide 20 MG TAB PO SCH (08:27)
[2022-07-24] MEDS: Megestrol Acetate 40 MG TAB PO SCH ×2 (08:28→21:42)
[2022-07-24] MEDS: Montelukast Sodium 10 mg Tablet PO SCH (08:30)
[2022-07-24] MEDS: Magnesium Oxide 400 MG TAB PO SCH (08:31)
[2022-07-24] MEDS: LUTEIN 6 MG PO SCH (08:55)
[2022-07-24] MEDS: Saccharomyces boulardii 250 MG CAP PO SCH (08:56)
[2022-07-24] MEDS: Mometasone/Formoterol 200/5 60 PUFF INH SCH ×2 (10:36→21:43)
[2022-07-24] MEDS: Nystatin Powder 15 GM BOT TOP SCH ×2 (10:37→21:45)
[2022-07-24 10:39] VITALS: BMI 26.3
[2022-07-24] MEDS: hydrOXYzine 25 MG TAB PO SCH (21:42)
[2022-07-25] MEDS: Lantus 1000 UNITS/10 ML VIAL SC SCH ×2 (09:13→21:12)
[2022-07-25] MEDS: Montelukast Sodium 10 mg Tablet PO SCH (09:15)
[2022-07-25] MEDS: Trospium 20 MG TAB PO SCH ×2 (09:15→21:12)
[2022-07-25] MEDS: Senokot S 8.6-50 MG TAB PO SCH ×2 (09:15→21:11)
[2022-07-25] MEDS: Furosemide 20 MG TAB PO SCH (09:15)
[2022-07-25] MEDS: Ezetimibe 10 MG TAB PO SCH (09:16)
[2022-07-25] MEDS: Letrozole 2.5 MG TAB PO SCH (09:16)
[2022-07-25] MEDS: Megestrol Acetate 40 MG TAB PO SCH ×2 (09:16→21:11)
[2022-07-25] MEDS: Digoxin 0.125 MG TAB PO SCH (09:16)
[2022-07-25] MEDS: Nitrofurantoin Monohyd/M-Cryst 100 MG CAP PO SCH ×2 (09:16→21:12)
[2022-07-25] MEDS: Magnesium Oxide 400 MG TAB PO SCH (09:17)
[2022-07-25] MEDS: Saccharomyces boulardii 250 MG CAP PO SCH (09:17)
[2022-07-25] MEDS: Apixaban 5 MG TAB PO SCH ×2 (09:20→21:12)
[2022-07-25] MEDS: Mometasone/Formoterol 200/5 60 PUFF INH SCH ×2 (09:22→21:09)
[2022-07-25] MEDS: LUTEIN 6 MG PO SCH (09:23)
[2022-07-25] MEDS: Nystatin Powder 15 GM BOT TOP SCH ×2 (09:23→21:18)
[2022-07-25] MEDS: Bupropion 150 MG XL TAB PO SCH ×2 (13:25→21:12)
[2022-07-25] MEDS: hydrOXYzine 25 MG TAB PO SCH (21:12)
[2022-07-26 05:12] LABS: Hemoglobin 8.7 g/dL (12.0-16.0); Platelet Count 228 10x3/uL (130-400)
[2022-07-26 05:58] VITALS: TEMP 98.6
[2022-07-26] MEDS: Senokot S 8.6-50 MG TAB PO SCH (08:40)
[2022-07-26] MEDS: Megestrol Acetate 40 MG TAB PO SCH (08:41)
[2022-07-26] MEDS: Ezetimibe 10 MG TAB PO SCH (08:41)
[2022-07-26] MEDS: Trospium 20 MG TAB PO SCH (08:41)
[2022-07-26] MEDS: Montelukast Sodium 10 mg Tablet PO SCH (08:41)
[2022-07-26] MEDS: Bupropion 150 MG XL TAB PO SCH (08:41)
[2022-07-26] MEDS: Saccharomyces boulardii 250 MG CAP PO SCH (08:41)
[2022-07-26] MEDS: Furosemide 20 MG TAB PO SCH (08:41)
[2022-07-26] MEDS: Nitrofurantoin Monohyd/M-Cryst 100 MG CAP PO SCH (08:41)
[2022-07-26] MEDS: Magnesium Oxide 400 MG TAB PO SCH (08:42)
[2022-07-26] MEDS: Digoxin 0.125 MG TAB PO SCH (08:42)
[2022-07-26] MEDS: Apixaban 5 MG TAB PO SCH (08:42)
[2022-07-26] MEDS: Letrozole 2.5 MG TAB PO SCH (08:43)
[2022-07-26] MEDS: Mometasone/Formoterol 200/5 60 PUFF INH SCH (08:43)
[2022-07-26] MEDS: Nystatin Powder 15 GM BOT TOP SCH (08:43)
[2022-07-26] MEDS: Lantus 1000 UNITS/10 ML VIAL SC SCH (09:31)
[2022-07-26] MEDS: LUTEIN 6 MG PO SCH (09:31)
[2022-07-26 12:43] VITALS: BP 133/70
== END 2022-07-26 12:30 | disposition home or self-care (01) | DRG 948 ==
LOC: BURMED 16:31
PROVIDERS: ADMIT Family Medicine; ATTEND Family Medicine
DX: R53.1 Weakness (principal); I50.32 Chronic diastolic (congestive) heart failure; E46 Unspecified protein-calorie malnutrition; I48.20 Chronic atrial fibrillation, unspecified; N39.0 Urinary tract infection, site not specified; Z16.20 Resistance to unspecified antibiotic; E11.9 Type 2 diabetes mellitus without complications; I11.0 Hypertensive heart disease with heart failure; E78.5 Hyperlipidemia, unspecified; B96.20 Unspecified Escherichia coli [E. coli] as the cause of diseases classified elsewhere; Z93.3 Colostomy status; Z68.26 Body mass index [BMI] 26.0-26.9, adult; Z20.822 Contact with and (suspected) exposure to COVID-19; C50.919 Malignant neoplasm of unspecified site of unspecified female breast
CPT/HCPCS: 36415; 36416; 80053; 81001; 82565; 85014; 85018; 85025; 85049; 87077; 87086; 87186; 87811; 94640; 94664; J1815; J7611; S0179; U0003; U0005